=== PATIENT | male | born 1955 | race Asian ===

== ENCOUNTER 2019-04-25 20:18 | Inpatient (IN) | payer MEDICAID ==
[~2019-04-25] VITALS: Ht 182.9 cm; Wt 95.4 kg
--- NOTE | 2019-04-25 20:30 | NUR ---
ED Nurse Note: Pt is A&Ox3, c/o generlized swelling q21mlwv, pt has hx of CHF. BP 194/125.
[2019-04-25] MEDS ORDERED: HYDRALAZINE HC100 MG ORAL (20:36)
[2019-04-25] MEDS ORDERED: FUROSEMIDE40 MG ORAL (20:36)
[2019-04-25] MEDS ORDERED: COREG12.5 MG ORAL (20:36)
[2019-04-25] MEDS ORDERED: CATAPRES0.3 MG ORAL (20:36)
[2019-04-25] MEDS ORDERED: ASPIRIN81 MG ORAL (20:36)
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
[2019-04-25 21:12] LABS: BASOPHILS % (AUTO) 0.5 % (0.0-2.0); EOSINOPHILS % (AUTO) 6.3 % (0.0-3.0); HEMATOCRIT 25.9 % (42.0-52.0); HEMOGLOBIN 8.9 G/DL (14.2-18.0); LYMPHOCYTES % (AUTO) 19.9 % (20.0-45.0); MEAN CORPUSCULAR VOLUME 83 FL (80-99); MONOCYTES % (AUTO) 5.6 % (1.0-10.0); NEUTROPHILS % (AUTO) 67.7 % (45.0-75.0); PLATELET COUNT 386 K/UL (150-450); RED BLOOD COUNT 3.14 M/UL (4.70-6.10); RED CELL DISTRIBUTION WIDTH 13.8 % (11.6-14.8); WHITE BLOOD COUNT 8.3 K/UL (4.8-10.8)
[2019-04-25 21:15] VITALS: BP 204/121
[2019-04-25 21:24] LABS: ANION GAP 11 mmol/L (5-15); BLOOD UREA NITROGEN 40 mg/dL (7-18); CALCIUM 8.1 MG/DL (8.5-10.1); CARBON DIOXIDE 23 MMOL/L (21-32); CHLORIDE 110 MMOL/L (98-107); CREATININE 3.2 MG/DL (0.55-1.30); POTASSIUM 3.7 MMOL/L (3.5-5.1); SODIUM 144 MMOL/L (136-145)
[2019-04-25 21:37] LABS: ALANINE AMINOTRANSFERASE 22 U/L (12-78); ALBUMIN 2.1 G/DL (3.4-5.0); ALBUMIN/GLOBULIN RATIO 0.6 (1.0-2.7); ALKALINE PHOSPHATASE 93 U/L (46-116); ASPARTATE AMINO TRANSFERASE 21 U/L (15-37); BILIRUBIN,TOTAL 0.2 MG/DL (0.2-1.0); CKMB 2.2 NG/ML (0.0-3.6); CREATINE KINASE 166 U/L (26-308)
--- NOTE | 2019-04-25 22:30 | NUR ---
ED Nurse Note: Pt is resting in bed, was given a sandwhich and juice, urinated 300mls of pale yellow urine. No further orders at this time
[2019-04-25] MEDS ORDERED: Albuterol/Ipratropium 3ml neb HHN PRN (23:00)
[2019-04-25] MEDS ORDERED: Miralax 17gm pkt ORAL PRN (23:00)
--- NOTE | 2019-04-25 23:20 | NUR ---
TRANSFER TO FLOOR: Patient transferred to as ordered, per Dr Marquez. Report given to PURA Nassar . Belongings and medications given to . Family and or S/O informed of transfer.
[2019-04-25 23:30] VITALS: BP 136/96
--- NOTE | 2019-04-25 23:30 | NUR ---
NURSE NOTES: Pt report received from [facility]. Pt is alert and oriented times 4 and able to follow simple commands. pt pupils are round and reactive to light and accommodating, bilaterally. Pt is placed in a emt p showing A FIB. Pt is on 2L NC and is saturating at 100%, no signs symptoms of acute cardiac distress noted. Pt has a L AC 20G noted, asymptomatic and able to flush. pt was brought up with all belongings which are at his bed side. all safety precautions are active, bed low and locked, bed armed, call light within easy access to pt, bed rails up times 3.
[2019-04-26] VITALS: BP 140/99
--- NOTE | 2019-04-26 00:07 | NUR ---
NURSE NOTES: Attempted to call MD Boyle to report pt condition. awaiting orders.
--- NOTE | 2019-04-26 00:14 | NUR ---
NURSE NOTES: Messaged MD Boyle in regards to Pts BP and HR as well as condition. awaiting orders.
--- NOTE | 2019-04-26 01:04 | NUR ---
NURSE NOTES: Messaged MD Marquez in regards to pt HR and BP. awaiting orders.
--- NOTE | 2019-04-26 01:16 | NUR ---
NURSE NOTES: Called MD Marquez office, Otto (with messaging services) answered and stated he is going to give message to MD Marquez. awaiting orders.
--- NOTE | 2019-04-26 02:05 | NUR ---
NURSE NOTES: Called MD Marquez office, Otto (with messaging services) answered and stated he is going to give message to MD Marquez. awaiting orders.
--- NOTE | 2019-04-26 03:00 | NUR ---
NURSE NOTES: MD Marquez messaged back and stated messaged MD Donald and MD Boyle. MD Donald has been messaged regarding Pt condition, HR and BP. awaiting orders.
[2019-04-26 04:00] VITALS: BP 155/102
--- NOTE | 2019-04-26 04:00 | NUR ---
NURSE NOTES: Pt refused to give stool sample.
--- NOTE | 2019-04-26 07:30 | NUR ---
HAND-OFF: Report given to Larry NEVESPRINTER ASSISTANT.
[2019-04-26 07:35] LABS: BASOPHILS % (AUTO) 1.2 % (0.0-2.0); HEMATOCRIT 26.4 % (42.0-52.0); HEMOGLOBIN 8.7 G/DL (14.2-18.0); LYMPHOCYTES % (AUTO) 20.8 % (20.0-45.0); MEAN CORPUSCULAR VOLUME 85 FL (80-99); MONOCYTES % (AUTO) 8.4 % (1.0-10.0); NEUTROPHILS % (AUTO) 62.7 % (45.0-75.0); PLATELET COUNT 380 K/UL (150-450); RED CELL DISTRIBUTION WIDTH 14.1 % (11.6-14.8); WHITE BLOOD COUNT 7.5 K/UL (4.8-10.8)
[2019-04-26 07:45] LABS: % IRON SATURATION 14 % (15-50); IRON 24 ug/dL (50-175); TOTAL IRON BINDING CAPACITY 176 ug/dL (250-450)
[2019-04-26] MEDS ORDERED: dilTIAZem HCl 25mg/5ml Inj IV PRN (07:45)
[2019-04-26 07:51] LABS: ALBUMIN 1.8 G/DL (3.4-5.0); ANION GAP 11 mmol/L (5-15); BLOOD UREA NITROGEN 44 mg/dL (7-18); CALCIUM 7.9 MG/DL (8.5-10.1); CARBON DIOXIDE 21 MMOL/L (21-32); CHLORIDE 112 MMOL/L (98-107); CREATININE 3.2 MG/DL (0.55-1.30); PHOSPHORUS 4.5 MG/DL (2.5-4.9); POTASSIUM 3.6 MMOL/L (3.5-5.1); SODIUM 144 MMOL/L (136-145)
--- NOTE | 2019-04-26 07:56 | NUR ---
NURSE NOTES: Received report from PURA Zimmerman. Patient in bed resting, no active s/s cardiac, respiratory distress noticed at this time, patient on 2L oxygen via NC, AOx4 , denies pain at this time. STAT EKG ordered for A. fib at night, EKG done, SR with 1st AVB, IV on left AC 20G, asymptomatic, patent, intact. Bed in lowest position, side rails upx2, call light within reach. Will continue to monitor.
[2019-04-26 08:00] VITALS: BP 165/97
[2019-04-26 08:05] LABS: LACTATE DEHYDROGENASE 235 U/L (81-234)
--- NOTE | 2019-04-26 08:14 | NUR ---
RADIOLOGY DEPT.,CHEST X-RAY DONE.-P.DYE
[2019-04-26 08:17] LABS: CREATINE KINASE 140 U/L (26-140)
[2019-04-26] MEDS ORDERED: Heparin 5000 units/ml inj SUBQ SCH (09:00)
--- NOTE | 2019-04-26 09:00 | NUR ---
NURSE NOTES: Dr. Huitron made aware patient troponin level elevated from 0.039 yesterday to 0.064 today, BUN 44, creatinine 3.2, SR with HR 86. No order given at this time.
--- NOTE | 2019-04-26 10:25 | Cardiac Electrophysiology PN ---
Subjective Subjective [id number] Objective Last 24 Hour Vital Signs Date Time Temp Pulse Resp B/P (MAP) Pulse Ox O2 Delivery O2 Flow Rate FiO2 04/26/19 09:00 Nasal Cannula 2.0 04/26/19 08:00 97.9 90 20 165/97 (119) 98 04/26/19 08:00 2.0 04/26/19 04:00 98.2 111 20 155/102 (119) 98 04/26/19 04:00 2.0 04/26/19 04:00 95 04/26/19 00:39 Nasal Cannula 2.0 04/26/19 00:00 103 04/26/19 00:00 98.0 125 20 140/99 (113) 97 04/25/19 23:30 97.9 129 20 136/96 (109) 97 04/25/19 23:30 Nasal Cannula 2.0 04/25/19 23:30 138 04/25/19 23:18 98.2 82 18 165/90 100 Room Air 04/25/19 22:55 174/110 04/25/19 21:17 204/121 04/25/19 21:15 98.2 98 16 204/121 98 Room Air 04/25/19 21:15 98 16 Room Air 04/25/19 20:24 98.2 98 16 204/121 (148) 98 Room Air Intake and Output 04/25/19 04/26/19 19:00 07:00 Output Total 300 ml Balance -300 ml Output Urine Total 300 ml Laboratory Tests Test 04/25/19 20:41 04/25/19 20:50 04/26/19 05:34 White Blood Count 8.3 K/UL (4.8-10.8) 7.5 K/UL (4.8-10.8) Red Blood Count 3.14 M/UL (4.70-6.10) L 3.10 M/UL (4.70-6.10) L Hemoglobin 8.9 G/DL (14.2-18.0) L 8.7 G/DL (14.2-18.0) L Hematocrit 25.9 % (42.0-52.0) L 26.4 % (42.0-52.0) L Mean Corpuscular Volume 83 FL (80-99) 85 FL (80-99) Mean Corpuscular Hemoglobin 28.3 PG (27.0-31.0) 28.0 PG (27.0-31.0) Mean Corpuscular Hemoglobin Concent 34.2 G/DL (32.0-36.0) 32.9 G/DL (32.0-36.0) Red Cell Distribution Width 13.8 % (11.6-14.8) 14.1 % (11.6-14.8) Platelet Count 386 K/UL (150-450) 380 K/UL (150-450) Mean Platelet Volume 3.9 FL (6.5-10.1) L 4.6 FL (6.5-10.1) L Neutrophils (%) (Auto) 67.7 % (45.0-75.0) 62.7 % (45.0-75.0) Lymphocytes (%) (Auto) 19.9 % (20.0-45.0) L 20.8 % (20.0-45.0) Monocytes (%) (Auto) 5.6 % (1.0-10.0) 8.4 % (1.0-10.0) Eosinophils (%) (Auto) 6.3 % (0.0-3.0) H 7.0 % (0.0-3.0) H Basophils (%) (Auto) 0.5 % (0.0-2.0) 1.2 % (0.0-2.0) Sodium Level 144 MMOL/L (136-145) 144 MMOL/L (136-145) Potassium Level 3.7 MMOL/L (3.5-5.1) 3.6 MMOL/L (3.5-5.1) Chloride Level 110 MMOL/L (98-107) H 112 MMOL/L (98-107) H Carbon Dioxide Level 23 MMOL/L (21-32) 21 MMOL/L (21-32) Anion Gap 11 mmol/L (5-15) 11 mmol/L (5-15) Blood Urea Nitrogen 40 mg/dL (7-18) H 44 mg/dL (7-18) H Creatinine 3.2 MG/DL (0.55-1.30) H 3.2 MG/DL (0.55-1.30) H Estimat Glomerular Filtration Rate 19.7 mL/min (>60) 19.7 mL/min (>60) Glucose Level 138 MG/DL (74-106) H 103 MG/DL (74-106) Calcium Level 8.1 MG/DL (8.5-10.1) L 7.9 MG/DL (8.5-10.1) L Total Bilirubin 0.2 MG/DL (0.2-1.0) Aspartate Amino Transf (AST/SGOT) 21 U/L (15-37) Alanine Aminotransferase (ALT/SGPT) 22 U/L (12-78) Alkaline Phosphatase 93 U/L (46-116) Total Creatine Kinase 166 U/L (26-308) 140 U/L (26-140) Creatine Kinase MB 2.2 NG/ML (0.0-3.6) Creatine Kinase MB Relative Index 1.3 Troponin I 0.039 ng/mL (0.000-0.056) 0.064 ng/mL (0.000-0.056) Pro-B-Type Natriuretic Peptide > 01520 pg/mL (0-125) H Total Protein 5.8 G/DL (6.4-8.2) L Albumin 2.1 G/DL (3.4-5.0) L 1.8 G/DL (3.4-5.0) L Globulin 3.7 g/dL Albumin/Globulin Ratio 0.6 (1.0-2.7) L Differential Total Cells Counted 100 Neutrophils % (Manual) 69 % (45-75) Lymphocytes % (Manual) 20 % (20-45) Monocytes % (Manual) 5 % (1-10) Eosinophils % (Manual) 5 % (0-3) H Basophils % (Manual) 1 % (0-2) Band Neutrophils 0 % (0-8) Platelet Estimate Adequate Platelet Morphology Normal Erythrocyte Sedimentation Rate 111 MM/HR (0-20) H Reticulocyte Count 1.6 % (0.5-2.0) Prothrombin Time 10.3 SEC (9.30-11.50) Prothromb Time International Ratio 1.0 (0.9-1.1) Activated Partial Thromboplast Time 31 SEC (23-33) Uric Acid 7.1 MG/DL (2.6-7.2) Phosphorus Level 4.5 MG/DL (2.5-4.9) Magnesium Level 2.3 MG/DL (1.8-2.4) Iron Level 24 ug/dL (50-175) L Total Iron Binding Capacity 176 ug/dL (250-450) L Percent Iron Saturation 14 % (15-50) L Unsaturated Iron Binding 152 ug/dL (112-346) Lactate Dehydrogenase 235 U/L (81-234) H C-Reactive Protein, Quantitative < 0.4 mg/dL (0.00-0.90) Carcinoembryonic Antigen Pending Vitamin B12 Level 327 PG/ML (193-986) Folate 15.0 NG/ML (8.6-58.9) Davy Huitron MD Apr 26, 2019 10:25
--- NOTE | 2019-04-26 10:35 | NUR ---
NURSE NOTES: Dr. Huitron at the nursing station, made aware of high blood pressure, per Dr. Huitron, will take care, no order given at this time. Will continue to monitor.
--- NOTE | 2019-04-26 11:11 | NUR ---
CASE MANAGEMENT:REVIEW 63 YR OLD MALE FROM HOME(TRANSITIONAL CORRECTION) TO ER PMH: DISCHARGED FROM [facility] FOR CHF ON THURSDAY AND DID NOT FILL PRESCRIPTION CC: SOB. GENERALIZED SWELLING X30 DAYS SI: CHF. HTN 98.2 98 16 204/121 98% ON RA H/H-8.9/25.9 BUN+40 CR+3.2 BNP>[id number] IS: IV LASIX IV HYDRALAZINE X2 ASA PO CHEST XRAY : TO TELEMETRY
[2019-04-26 12:00] VITALS: BP 172/105
--- NOTE | 2019-04-26 12:45 | Diagnostic Imaging Report ---
Indication: Dyspnea Comparison: None A single view chest radiograph was obtained. Findings: Vascular prominence and interstitial edema suspected with evidence of a left pleural effusion. Heart size is borderline enlarged. IMPRESSION: Suspected CHF and a left pleural effusion
[2019-04-26] MEDS: dilTIAZem HCl 60mg tab ORAL SCH ×2 (12:51→17:44)
--- NOTE | 2019-04-26 13:00 | NUR ---
NURSE NOTES: Dr. Boudreaux at the nursing station made aware patient has high blood pressure 170s, per Dr. Boudreaux, will review chart and will order something. No order given at this time. Will continue to monitor.
--- NOTE | 2019-04-26 13:02 | Diagnostic Imaging Report ---
Indication: Dyspnea Comparison: 04/25/2019 A single view chest radiograph was obtained. Findings: There is evidence of a left pleural effusion. Mild pulmonary vascular congestion may be present. Correlate clinically. Heart is enlarged. IMPRESSION: No significant change compared to the previous day
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
[2019-04-26] MEDS ORDERED: Iron Sucrose 200 MG in NS 110 ML IV ONE (13:30)
--- NOTE | 2019-04-26 14:16 | Diagnostic Imaging Report ---
Indication:Elevated Bun and Creatinine. Technique: Grayscale and duplex Doppler imaging of the kidneys performed. Comparison: None Findings: The kidneys appear echogenic. The right kidney length is 10.3 cm. The left kidney length is 11.3 cm. There is no hydronephrosis. There is trace ascites and perinephric fluid. Moderate bilateral pleural effusions noted. IVC and bladder are unremarkable. IMPRESSION: Medical renal disease Bilateral pleural effusions
--- NOTE | 2019-04-26 15:33 | NUR ---
NURSE NOTES: Dr. Huitron made aware patient still has high blood pressure 170s, we have order for Cardizem, amiodarone, Lasix, but patient not urinating. No order given at this time, will continue to monitor.
[2019-04-26 16:00] VITALS: BP 183/123
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
--- NOTE | 2019-04-26 16:00 | NUR ---
NURSE NOTES: Patient void, 24h urine collection begin
--- NOTE | 2019-04-26 17:04 | NUR ---
NURSE NOTES: Per Dr. Huitron, hydralazine 10mg IV Q 2h prn for SBP >170, order noted, entered, carried out.
[2019-04-26 17:15] LABS: APPEARANCE,URINE SLIGHTLY CLOUDY; BILIRUBIN, URINE NEGATIVE (NEGATIVE); COLOR,URINE PALE YELLOW; GLUCOSE, URINE (UA) NEGATIVE (NEGATIVE); KETONES,URINE NEGATIVE (NEGATIVE); LEUKOCYTE ESTERASE ,URINE NEGATIVE (NEGATIVE); NITRITE,URINE NEGATIVE (NEGATIVE); PH,URINE 5 (4.5-8.0); PROTEIN,URINE 4+ (NEGATIVE); UROBILINOGEN,URINE NORMAL MG/DL (0.0-1.0)
[2019-04-26] MEDS: Eliquis 2.5mg tablet ORAL SCH (17:45)
[2019-04-26] MEDS: Docusate 100mg cap ORAL SCH (17:45)
[2019-04-26] MEDS ORDERED: Eliquis 5mg tablet ORAL SCH (18:00)
--- NOTE | 2019-04-26 19:27 | NUR ---
NURSE NOTES: Received bedside report from PURA Juarez.Patient stable,A&O x4,SR on staffing specialist,2L/min N/C,no SOB,no respiratory distress noted,no c/o pain at this moment,BS active in all quadrants,IV asymptomatic,intact on L AC 20G TKO,bed secured in a low safety position,call light within a reach,will continue to monitor and continue to 24 hours urine collection that has been started @ 1600 04/26/19.
[2019-04-26 20:00] VITALS: BP 147/93
--- NOTE | 2019-04-26 20:07 | NUR ---
HAND-OFF: Report given to PURA Roy.
--- NOTE | 2019-04-26 20:35 | NUR ---
NURSE NOTES: Received a lab result from Maetroponin 0.069.Charge nurse aware,day shift will endorse
--- NOTE | 2019-04-26 20:36 | NUR ---
NURSE NOTES: MD will notify in a morning regarding patient's lab result
[2019-04-26] MEDS: Amiodarone 200mg tab ORAL SCH (20:42)
[2019-04-27] VITALS: BP 144/89
[2019-04-27] MEDS: dilTIAZem HCl 60mg tab ORAL SCH ×4 (00:13→17:19)
--- NOTE | 2019-04-27 03:15 | Consultation ---
DATE OF CONSULTATION: 04/26/2019 CARDIOLOGY CONSULTATION CONSULTING PHYSICIAN: Davy Huitron M.D. REASON FOR CONSULTATION: Atrial fibrillation with rapid ventricular response. HISTORY OF PRESENT ILLNESS: The patient is a 63-year-old gentleman with history of hypertension, diabetes, and congestive heart failure, presented to the emergency room for increasing shortness of breath. The patient was just discharged from the [facility] about two weeks ago and states that his has been swollen since then . The patient also noted increased scrotal swelling. The patient's blood pressure in the ER was 204/121 and subsequently had developed atrial fibrillation with rapid ventricular response and the EKG showing a heart rate of 160 beats per minute. REVIEW OF SYSTEMS: Review of systems was negative other than what was mentioned in the history of present illness. PAST MEDICAL HISTORY: 1. Hypertension. 2. Congestive heart failure. 3. History of chronic kidney disease. 4. Psychiatric history of schizophrenia. FAMILY HISTORY: Noncontributory. PHYSICAL EXAMINATION: VITAL SIGNS: Show blood pressure of 165/97, pulse is 90, respirations 18, and temperature 97.7. HEAD AND NECK: Shows no JVD or carotid bruit. LUNGS: Have decreased breath sounds. CARDIOVASCULAR: Regular S1 and S2 with no gallop or murmur. ABDOMEN: Soft. EXTREMITIES: A 1+ pitting edema. LABORATORY AND DIAGNOSTIC DATA: His labs show white count , hemoglobin 8.7, hematocrit 26.4, and platelet count of 380. Sodium 144, potassium 3.6, BUN of 44, creatinine 3.2, glucose of 103. Troponin was 0.039 and subsequent one was 0.064. His BNP is more than 35,000. ASSESSMENT AND PLAN: 1. Atrial fibrillation with rapid ventricular response. The EKG on showed atrial fibrillation, heart rate 150 beats per minute. A 12-lead EKG from today at 7:11 a.m. shows sinus rhythm with first-degree AV block with left posterior fascicular block as well as inferolateral ischemia on the EKG. I will start the patient on Cardizem 60 mg every 6 hours for blood pressure control and also to control the rate during atrial fibrillation. We may need to start him on amiodarone since he goes so much in and out of atrial fibrillation and arrhythmia. 2. Congestive heart failure. Echocardiogram showed EF of 55% with diastolic dysfunction. Continue Lasix 40 mg IV every 8 hours as well as Cardizem. 3. History of hypertension. Blood pressure was in 200. Continue Lasix and Cardizem. May need to increase dose of Cardizem. 4. History of schizophrenia. Further evaluation by Psychiatry. 5. Anticoagulation, the patient is on heparin 5000 subcutaneous b.i.d. 6. I will likely switch him to Eliquis 5 mg b.i.d. for thromboembolic prophylaxis. Thank you very much for allowing me to participate in the care of this patient. Please do not hesitate to contact me for any questions regarding my evaluation. Davy Huitron M.D. DR: ANANDA JOB#: [id number] CC:
[2019-04-27 04:00] VITALS: BP 149/95
--- NOTE | 2019-04-27 07:06 | NUR ---
HAND-OFF: Report given to PURA Ames.Patient stable..
--- NOTE | 2019-04-27 07:20 | NUR ---
NURSE NOTES: I received the patient awake and resting in bed. Patient alert and oriented x4. Laboratory at the bedside drawing blood. Patient does not display any signs of distress or SOB. Bed in the lowest position and call light within reach. I will continue to monitor the patient and implement care.
[2019-04-27 08:00] VITALS: BP 153/89
--- NOTE | 2019-04-27 08:16 | NUR ---
NURSE NOTES: Dr. Huitron made aware that the patient's troponin trended up to 0.069.
[2019-04-27] MEDS: Eliquis 2.5mg tablet ORAL SCH ×2 (08:30→17:19)
[2019-04-27] MEDS: Amiodarone 200mg tab ORAL SCH ×2 (08:30→20:39)
[2019-04-27] MEDS: Docusate 100mg cap ORAL SCH ×2 (08:30→17:19)
[2019-04-27 08:50] LABS: BASOPHILS % (AUTO) 0.5 % (0.0-2.0); EOSINOPHILS % (AUTO) 1.7 % (0.0-3.0); HEMATOCRIT 25.1 % (42.0-52.0); HEMOGLOBIN 8.3 G/DL (14.2-18.0); LYMPHOCYTES % (AUTO) 15.7 % (20.0-45.0); MEAN CORPUSCULAR VOLUME 86 FL (80-99); MONOCYTES % (AUTO) 5.7 % (1.0-10.0); NEUTROPHILS % (AUTO) 76.4 % (45.0-75.0); PLATELET COUNT 351 K/UL (150-450); RED BLOOD COUNT 2.92 M/UL (4.70-6.10); RED CELL DISTRIBUTION WIDTH 14.5 % (11.6-14.8); WHITE BLOOD COUNT 11.5 K/UL (4.8-10.8)
[2019-04-27 09:10] LABS: PHOSPHORUS 4.5 MG/DL (2.5-4.9)
[2019-04-27 09:30] LABS: ALANINE AMINOTRANSFERASE 18 U/L (12-78); ALBUMIN 2.1 G/DL (3.4-5.0); ALBUMIN/GLOBULIN RATIO 0.7 (1.0-2.7); ALKALINE PHOSPHATASE 88 U/L (46-116); ANION GAP 11 mmol/L (5-15); ASPARTATE AMINO TRANSFERASE 20 U/L (15-37); BILIRUBIN,TOTAL 0.3 MG/DL (0.2-1.0); BLOOD UREA NITROGEN 45 mg/dL (7-18); CALCIUM 7.7 MG/DL (8.5-10.1); CARBON DIOXIDE 22 MMOL/L (21-32); CHLORIDE 107 MMOL/L (98-107); CHOLESTEROL 390 MG/DL (< 200); CREATININE 3.4 MG/DL (0.55-1.30); HDL CHOLESTEROL 34 MG/DL (40-60); POTASSIUM 3.7 MMOL/L (3.5-5.1); SODIUM 139 MMOL/L (136-145); TRIGLYCERIDES 224 MG/DL (30-150)
--- NOTE | 2019-04-27 09:39 | Pulmonology Progress Note ---
Assessment/Plan Problems: (1) Nephrotic syndrome (2) Renal anasarca (3) Hypertension (4) CRF (chronic renal failure) (5) Anemia, unspecified Assessment/Plan 24 hour urine protein and creatinine clearance pending on Lasix., watch bun/creatinine monitor BP Renal US noted, chronic renal disease dvt prophylaxis. Subjective ROS Limited/Unobtainable: No Constitutional: Reports: no symptoms HEENT: Repors: no symptoms Respiratory: Reports: no symptoms Allergies: Coded Allergies: Dairy (Verified Allergy, Unknown, 04/25/19) PENICILLINS (Verified Allergy, Unknown, 04/25/19) Objective Last 24 Hour Vital Signs Date Time Temp Pulse Resp B/P (MAP) Pulse Ox O2 Delivery O2 Flow Rate FiO2 04/27/19 08:00 98.3 69 20 153/89 (110) 96 04/27/19 05:06 78 149/95 04/27/19 04:00 96.8 78 19 149/95 (113) 98 04/27/19 04:00 2.0 04/27/19 03:27 76 04/27/19 00:13 83 144/89 04/27/19 00:00 2.0 04/27/19 00:00 98.9 83 19 144/89 (107) 98 04/26/19 23:40 85 04/26/19 21:00 Nasal Cannula 2.0 04/26/19 20:00 97.3 87 18 147/93 (111) 98 04/26/19 20:00 2.0 04/26/19 19:48 83 20 98 Nasal Cannula 2.0 28 04/26/19 19:44 90 24 94 Nasal Cannula 2.0 28 04/26/19 19:43 90 24 94 Nasal Cannula 2.0 28 04/26/19 19:42 94 Nasal Cannula 2.0 28 04/26/19 19:03 87 04/26/19 17:44 183/123 04/26/19 17:44 92 183/123 04/26/19 16:00 90 04/26/19 16:00 97.3 92 18 183/123 (143) 95 04/26/19 16:00 2.0 04/26/19 12:51 80 172/105 04/26/19 12:00 83 04/26/19 12:00 97.8 80 18 172/105 (127) 95 04/26/19 12:00 2.0 Intake and Output 04/26/19 04/27/19 18:59 06:59 Intake Total 360 ml 950 ml Output Total 300 ml Balance 60 ml 950 ml Intake Oral 360 ml 950 ml Output Urine Total 300 ml # Voids 6 General Appearance: WD/WN HEENT: normocephalic, atraumatic Respiratory/Chest: chest wall non-tender, lungs clear Cardiovascular: normal peripheral pulses, normal rate Abdomen: normal bowel sounds Genitourinary: normal external genitalia Neurologic/Psychiatric: poke in II-XII grossly normal Lymphatic: no neck adenopathy Laboratory Tests 04/26/19 16:00: Urine Color Pale yellow, Urine Appearance Slightly cloudy, Urine pH 5, Urine Specific [place] 1.020, Urine Protein 4+H, Urine Glucose (UA) Negative, Urine Ketones Negative, Urine Blood 2+H, Urine Nitrite Negative, Urine Bilirubin Negative, Urine Urobilinogen Normal, Urine Leukocyte Esterase Negative, Urine RBC 10-15H, Urine WBC 0-2, Urine Squamous Epithelial Cells Occasional, Urine Bacteria Few, Urine Hyaline Casts 10-15H, Urine Fine Granular Casts 2-4H, Urine Eosinophils None seen, Urine Osmolality 365L, Urine Random Creatinine [Pending] , Urine Random Microalbumin [Pending], Urine Random Sodium 61, Urine Microalbumin/Creatinine Ratio [Pending], Urine Potassium Timed 43 04/26/19 20:00: Troponin I 0.069H 04/27/19 04:00: White Blood Count 11.5#H, Red Blood Count 2.92L, Hemoglobin 8.3L, Hematocrit 25.1L, Mean Corpuscular Volume 86, Mean Corpuscular Hemoglobin 28.6, Mean Corpuscular Hemoglobin Concent 33.3, Red Cell Distribution Width 14.5, Platelet Count 351, Mean Platelet Volume 4.4L, Neutrophils (%) (Auto) 76.4H, Lymphocytes (%) (Auto) 15.7L, Monocytes (%) (Auto) 5.7, Eosinophils (%) (Auto) 1.7, Basophils (%) (Auto) 0.5 04/27/19 07:02: Troponin I 0.049, Sodium Level 139, Potassium Level 3.7, Chloride Level 107, Carbon Dioxide Level 22, Anion Gap 11, Blood Urea Nitrogen 45H, Creatinine 3.4H , Estimat Glomerular Filtration Rate 18.3, Glucose Level 110H, Calcium Level 7.7L, Phosphorus Level 4.5, Magnesium Level 2.1, Total Bilirubin 0.3, Aspartate Amino Transf (AST/SGOT) 20, Alanine Aminotransferase (ALT/SGPT) 18, Alkaline Phosphatase 88, Pro-B-Type Natriuretic Peptide 19996Z, Total Protein 4.9L, Albumin 2.1L, Globulin 2.8, Albumin/Globulin Ratio 0.7L, Triglycerides Level 224H, Cholesterol Level 390H, LDL Cholesterol 272H, HDL Cholesterol 34L, Cholesterol/HDL Ratio 11.5H, Thyroid Stimulating Hormone (TSH) 3.402, Free Thyroxine 1.30 Current Medications Medications (Trade) Dose Ordered Sig/Hans Route PRN Reason Start Time Stop Time Status Last Admin Dose Admin Acetaminophen (Tylenol) 650 mg Q4H PRN ORAL Fever 04/25/19 23:00 05/25/19 22:59 04/26/19 20:02 Albuterol/ Ipratropium (Albuterol/ Ipratropium) 3 ml EVERY 4 HOURS PRN HHN Shortness of Breath 04/25/19 23:00 04/30/19 22:59 04/26/19 19:46 Amiodarone HCl (Cordarone) 400 mg EVERY 12 HOURS ORAL 04/26/19 21:00 05/26/19 20:59 04/27/19 08:30 Apixaban (Eliquis) 2.5 mg BID ORAL 04/26/19 18:00 05/26/19 17:59 04/27/19 08:30 Dextrose (Dextrose 50%) 25 ml Q30M PRN IV Hypoglycemia 04/25/19 23:00 05/25/19 22:59 Dextrose (Dextrose 50%) 50 ml Q30MIN PRN IV Hypoglycemia 04/25/19 23:00 05/25/19 22:59 Diltiazem HCl (Cardizem) 10 mg Q1H PRN IV heart rate more than 120, 04/26/19 07:45 05/26/19 07:44 Diltiazem HCl (Cardizem) 60 mg EVERY 6 HOURS ORAL 04/26/19 12:00 05/26/19 11:59 04/27/19 05:06 Docusate Sodium (Colace) 100 mg TWICE A DAY ORAL 04/26/19 18:00 05/26/19 17:59 04/27/19 08:30 Epoetin [place] (Epoetin [place]-EPBX(NON ESRD)) 10,000 unit THU- SUBQ 04/27/19 21:00 05/27/19 20:59 Furosemide (Lasix) 40 mg EVERY 8 HOURS IV 04/26/19 06:00 05/26/19 05:59 04/27/19 05:05 Hydralazine HCl (Apresoline) 10 mg Q2H PRN IV SBP > 170mmHg 04/26/19 17:15 05/26/19 17:14 04/26/19 17:44 Ondansetron HCl (Zofran) 4 mg Q6H PRN IVP Nausea & Vomiting 04/25/19 23:00 05/25/19 22:59 Pantoprazole (Protonix) 40 mg Q12HR ORAL 04/26/19 21:00 05/26/19 20:59 04/27/19 08:30 Polyethylene Glycol (Miralax) 17 gm DAILYPRN PRN ORAL Constipation 04/25/19 23:00 05/25/19 22:59 Temazepam (Restoril) 15 mg HSPRN PRN ORAL Insomnia 04/25/19 23:00 05/02/19 22:59 04/26/19 20:02 Lorenza Boyle MD Apr 27, 2019 09:39
--- NOTE | 2019-04-27 10:54 | Cardiac Electrophysiology PN ---
Assessment/Plan Assessment/Plan 1. Atrial fibrillation with rapid ventricular response. The EKG on 10/25/19 showed atrial fibrillation, heart rate 150 beats per minute. A 12-lead EKG from 10/26/19 at 7:11 a.m. shows sinus rhythm with first-degree AV block with left posterior fascicular block as well as inferolateral ischemia on the EKG. On Cardizem 60 mg every 6 hours and amiodarone 400 bid and Eliquis 2.5 bid 2. Congestive heart failure with BNP > 43259. Echocardiogram showed EF of 55% with diastolic dysfunction. Continue Lasix 40 mg IV every 8 hours as well as Cardizem.Likely due to volume overload due to renal failure. 3. Hypertension. Blood pressure was in 200. Continue Lasix and Cardizem. 4. Acute renal failure. BUN/CR 45/3.4 ? Nephrotic syndrome. FU Dr Boudreaux. May need HD 4. History of schizophrenia. Further evaluation by Psychiatry. Subjective Subjective Alert in NAD. Is having 24 hour urine collection. On Iv Lasix 40 tid. Objective Last 24 Hour Vital Signs Date Time Temp Pulse Resp B/P (MAP) Pulse Ox O2 Delivery O2 Flow Rate FiO2 04/27/19 09:00 Nasal Cannula 2.0 04/27/19 08:00 98.3 69 20 153/89 (110) 96 04/27/19 08:00 2.0 28 04/27/19 08:00 73 04/27/19 07:41 95 Nasal Cannula 2.0 28 04/27/19 05:06 78 149/95 04/27/19 04:00 96.8 78 19 149/95 (113) 98 04/27/19 04:00 2.0 04/27/19 03:27 76 04/27/19 00:13 83 144/89 04/27/19 00:00 2.0 04/27/19 00:00 98.9 83 19 144/89 (107) 98 04/26/19 23:40 85 04/26/19 21:00 Nasal Cannula 2.0 04/26/19 20:00 97.3 87 18 147/93 (111) 98 04/26/19 20:00 2.0 04/26/19 19:48 83 20 98 Nasal Cannula 2.0 28 04/26/19 19:44 90 24 94 Nasal Cannula 2.0 28 04/26/19 19:43 90 24 94 Nasal Cannula 2.0 28 04/26/19 19:42 94 Nasal Cannula 2.0 28 04/26/19 19:03 87 04/26/19 17:44 183/123 04/26/19 17:44 92 183/123 04/26/19 16:00 90 04/26/19 16:00 97.3 92 18 183/123 (143) 95 04/26/19 16:00 2.0 04/26/19 12:51 80 172/105 04/26/19 12:00 83 04/26/19 12:00 97.8 80 18 172/105 (127) 95 04/26/19 12:00 2.0 Intake and Output 04/26/19 04/27/19 18:59 06:59 Intake Total 360 ml 950 ml Output Total 300 ml Balance 60 ml 950 ml Intake Oral 360 ml 950 ml Output Urine Total 300 ml # Voids 6 Laboratory Tests Test 04/26/19 16:00 04/26/19 20:00 04/27/19 04:00 04/27/19 07:02 Urine Color Pale yellow Urine Appearance Slightly cloudy Urine pH 5 (4.5-8.0) Urine Specific [place] 1.020 (1.005-1.035) Urine Protein 4+ (NEGATIVE) H Urine Glucose (UA) Negative (NEGATIVE) Urine Ketones Negative (NEGATIVE) Urine Blood 2+ (NEGATIVE) H Urine Nitrite Negative (NEGATIVE) Urine Bilirubin Negative (NEGATIVE) Urine Urobilinogen Normal MG/DL (0.0-1.0) Urine Leukocyte Esterase Negative (NEGATIVE) Urine RBC 10-15 /HPF (0 - 0) H Urine WBC 0-2 /HPF (0 - 0) Urine Squamous Epithelial Cells Occasional /LPF Urine Bacteria Few /HPF (NONE) Urine Hyaline Casts 10-15 /LPF (NONE) H Urine Fine Granular Casts 2-4 /LPF (NONE) H Urine Eosinophils None seen (NONE SEEN) Urine Osmolality 365 mOsm/kg (429-449) L Urine Random Creatinine Pending Urine Random Microalbumin Pending Urine Random Sodium 61 mmol/L (20-110) Urine Microalbumin/Creatinine Ratio Pending Urine Potassium Timed 43 mmol/L (12-62) Troponin I 0.069 ng/mL (0.000-0.056) 0.049 ng/mL (0.000-0.056) White Blood Count 11.5 K/UL (4.8-10.8) #H Red Blood Count 2.92 M/UL (4.70-6.10) L Hemoglobin 8.3 G/DL (14.2-18.0) L Hematocrit 25.1 % (42.0-52.0) L Mean Corpuscular Volume 86 FL (80-99) Mean Corpuscular Hemoglobin 28.6 PG (27.0-31.0) Mean Corpuscular Hemoglobin Concent 33.3 G/DL (32.0-36.0) Red Cell Distribution Width 14.5 % (11.6-14.8) Platelet Count 351 K/UL (150-450) Mean Platelet Volume 4.4 FL (6.5-10.1) L Neutrophils (%) (Auto) 76.4 % (45.0-75.0) H Lymphocytes (%) (Auto) 15.7 % (20.0-45.0) L Monocytes (%) (Auto) 5.7 % (1.0-10.0) Eosinophils (%) (Auto) 1.7 % (0.0-3.0) Basophils (%) (Auto) 0.5 % (0.0-2.0) Sodium Level 139 MMOL/L (136-145) Potassium Level 3.7 MMOL/L (3.5-5.1) Chloride Level 107 MMOL/L (98-107) Carbon Dioxide Level 22 MMOL/L (21-32) Anion Gap 11 mmol/L (5-15) Blood Urea Nitrogen 45 mg/dL (7-18) H Creatinine 3.4 MG/DL (0.55-1.30) H Estimat Glomerular Filtration Rate 18.3 mL/min (>60) Glucose Level 110 MG/DL (74-106) H Calcium Level 7.7 MG/DL (8.5-10.1) L Phosphorus Level 4.5 MG/DL (2.5-4.9) Magnesium Level 2.1 MG/DL (1.8-2.4) Total Bilirubin 0.3 MG/DL (0.2-1.0) Aspartate Amino Transf (AST/SGOT) 20 U/L (15-37) Alanine Aminotransferase (ALT/SGPT) 18 U/L (12-78) Alkaline Phosphatase 88 U/L (46-116) Pro-B-Type Natriuretic Peptide 82356 pg/mL (0-125) H Total Protein 4.9 G/DL (6.4-8.2) L Albumin 2.1 G/DL (3.4-5.0) L Globulin 2.8 g/dL Albumin/Globulin Ratio 0.7 (1.0-2.7) L Triglycerides Level 224 MG/DL (30-150) H Cholesterol Level 390 MG/DL (< 200) H LDL Cholesterol 272 mg/dL (<100) H HDL Cholesterol 34 MG/DL (40-60) L Cholesterol/HDL Ratio 11.5 (3.3-4.4) H Thyroid Stimulating Hormone (TSH) 3.402 uiU/mL (0.358-3.740) Free Thyroxine 1.30 NG/DL (0.76-1.46) Objective HEAD AND NECK: No JVD or carotid bruit. LUNGS: Have decreased breath sounds. CARDIOVASCULAR: Regular S1 and S2 with no gallop or murmur. ABDOMEN: Soft. EXTREMITIES: 2+ pitting edema and scrotal edema. Davy Huitron MD Apr 27, 2019 10:54
--- NOTE | 2019-04-27 11:40 | NUR ---
CASE MANAGEMENT:REVIEW 04/27/19 SI: NEPHROTIC SYNDROME RENAL ANASARCA. CHRONIC RENAL FAILURE 98.3 69 20 153/89 95% ON 2L/NC WBC+11.5 H/H-8.3/25.1 BUN+45 CR+3.4 IS: EPOETIN SQ MWF AMIODARONE PO Q12 PROTONIX PO Q12 ELIQUIS PO BID CARDIZEM PO Q6HRS IV LASIX Q8HRS : TELEMETRY STATUS DCP: FROM TRANSITIONAL HOUSING PLAN: MONITOR BUN AND CR
[2019-04-27 11:49] VITALS: BP 175/94
--- NOTE | 2019-04-27 14:36 | General Progress Note ---
Assessment/Plan Problem List: (1) Acute exacerbation of CHF (congestive heart failure) ICD Codes: I50.9 - Heart failure, unspecified SNOMED: 553877538, 76759639288862 Qualifiers: Qualified Codes: I50.9 - Heart failure, unspecified (2) Hypertension ICD Codes: I10 - Essential (primary) hypertension SNOMED: 74192623, [id number] Qualifiers: Qualified Codes: I10 - Essential (primary) hypertension (3) Anemia, unspecified ICD Codes: D64.9 - Anemia, unspecified SNOMED: 527651051 Qualifiers: Qualified Codes: D64.9 - Anemia, unspecified (4) Renal anasarca ICD Codes: N04.9 - Nephrotic syndrome with unspecified morphologic changes SNOMED: 81765238344890 Status: unchanged Assessment/Plan: o2 pulm tx cardio f/u pt diet cbc bmp am dc plan snf Subjective Constitutional: Reports: weakness Allergies: Coded Allergies: Dairy (Verified Allergy, Unknown, 04/25/19) PENICILLINS (Verified Allergy, Unknown, 04/25/19) All Systems: reviewed and negative except above Subjective calm in bed Objective Last 24 Hour Vital Signs Date Time Temp Pulse Resp B/P (MAP) Pulse Ox O2 Delivery O2 Flow Rate FiO2 04/27/19 12:31 97.8 04/27/19 12:00 2.0 04/27/19 12:00 75 175/94 04/27/19 12:00 75 04/27/19 11:49 97.8 75 18 175/94 (121) 96 04/27/19 09:00 Nasal Cannula 2.0 04/27/19 08:00 98.3 69 20 153/89 (110) 96 04/27/19 08:00 2.0 28 04/27/19 08:00 73 04/27/19 07:41 95 Nasal Cannula 2.0 28 04/27/19 05:06 78 149/95 04/27/19 04:00 96.8 78 19 149/95 (113) 98 04/27/19 04:00 2.0 04/27/19 03:27 76 04/27/19 00:13 83 144/89 04/27/19 00:00 2.0 04/27/19 00:00 98.9 83 19 144/89 (107) 98 04/26/19 23:40 85 6/25/19 21:00 Nasal Cannula 2.0 04/26/19 20:00 97.3 87 18 147/93 (111) 98 04/26/19 20:00 2.0 04/26/19 19:48 83 20 98 Nasal Cannula 2.0 28 04/26/19 19:44 90 24 94 Nasal Cannula 2.0 28 04/26/19 19:43 90 24 94 Nasal Cannula 2.0 28 04/26/19 19:42 94 Nasal Cannula 2.0 28 04/26/19 19:03 87 04/26/19 17:44 183/123 04/26/19 17:44 92 183/123 04/26/19 16:00 90 04/26/19 16:00 97.3 92 18 183/123 (143) 95 04/26/19 16:00 2.0 Intake and Output 04/26/19 04/27/19 19:00 07:00 Intake Total 360 ml 950 ml Output Total 300 ml Balance 60 ml 950 ml Intake Oral 360 ml 950 ml Output Urine Total 300 ml # Voids 6 Laboratory Tests 04/26/19 16:00: Urine Color Pale yellow, Urine Appearance Slightly cloudy, Urine pH 5, Urine Specific [place] 1.020, Urine Protein 4+H, Urine Glucose (UA) Negative, Urine Ketones Negative, Urine Blood 2+H, Urine Nitrite Negative, Urine Bilirubin Negative, Urine Urobilinogen Normal, Urine Leukocyte Esterase Negative, Urine RBC 10-15H, Urine WBC 0-2, Urine Squamous Epithelial Cells Occasional, Urine Bacteria Few, Urine Hyaline Casts 10-15H, Urine Fine Granular Casts 2-4H, Urine Eosinophils None seen, Urine Osmolality 365L, Urine Random Creatinine [Pending] , Urine Random Microalbumin [Pending], Urine Random Sodium 61, Urine Microalbumin/Creatinine Ratio [Pending], Urine Potassium Timed 43 04/26/19 20:00: Troponin I 0.069H 04/27/19 04:00: White Blood Count 11.5#H, Red Blood Count 2.92L, Hemoglobin 8.3L, Hematocrit 25.1L, Mean Corpuscular Volume 86, Mean Corpuscular Hemoglobin 28.6, Mean Corpuscular Hemoglobin Concent 33.3, Red Cell Distribution Width 14.5, Platelet Count 351, Mean Platelet Volume 4.4L, Neutrophils (%) (Auto) 76.4H, Lymphocytes (%) (Auto) 15.7L, Monocytes (%) (Auto) 5.7, Eosinophils (%) (Auto) 1.7, Basophils (%) (Auto) 0.5 04/27/19 07:02: Troponin I 0.049, Sodium Level 139, Potassium Level 3.7, Chloride Level 107, Carbon Dioxide Level 22, Anion Gap 11, Blood Urea Nitrogen 45H, Creatinine 3.4H , Estimat Glomerular Filtration Rate 18.3, Glucose Level 110H, Calcium Level 7.7L, Phosphorus Level 4.5, Magnesium Level 2.1, Total Bilirubin 0.3, Aspartate Amino Transf (AST/SGOT) 20, Alanine Aminotransferase (ALT/SGPT) 18, Alkaline Phosphatase 88, Pro-B-Type Natriuretic Peptide 03945V, Total Protein 4.9L, Albumin 2.1L, Globulin 2.8, Albumin/Globulin Ratio 0.7L, Triglycerides Level 224H, Cholesterol Level 390H, LDL Cholesterol 272H, HDL Cholesterol 34L, Cholesterol/HDL Ratio 11.5H, Thyroid Stimulating Hormone (TSH) 3.402, Free Thyroxine 1.30 Height (Feet): 6 Height (Inches): 0.00 Weight (Pounds): 215 General Appearance: lethargic EENT: normal ENT inspection Neck: normal alignment Cardiovascular: normal peripheral pulses, normal rate, regular rhythm Respiratory/Chest: chest wall non-tender, lungs clear, normal breath sounds Abdomen: normal bowel sounds, non tender, soft Extremities: normal inspection Edema: no edema noted Arm (L), no edema noted Arm (R), no edema noted Leg (L), no edema noted Leg (R), no edema noted Pedal (L), no edema noted Pedal (R), no edema noted Generalized Neurologic: responsive, motor weakness Skin: normal pigmentation, warm/dry Rick Marquez DO Apr 27, 2019 14:36
--- NOTE | 2019-04-27 15:00 | NUR ---
NURSE NOTES: Patient complained that his IV was causing pain, so I removed the IV. The IV site did not display any signs of redness or swelling. I attempted to obtain new IV access, but the patient refused at this time. Patient sitting up in a chair. He does not display any signs of distress or SOB.
--- NOTE | 2019-04-27 15:46 | NUR ---
HOMELESS COORDINATOR HC spoke with patient and patient is alert and oriented. Patient does not have contact number. Patient states he is un able to walk and would like a walker. Patient is currently living at a Transitional Housing [address] [place] [id number] . Patient has been living at this location since March 2019. Patient states he is very unhappy at his location and would like placement at a board and care or assisted living. patient states he feels threatened at his transitional housing. Patient has no change person. Patient states he receives about $800 in SSI. Patient states he is currently only using medical marijuanas. Patient states he does suffer from mental illness from time to time hearing voices. Patient refuses resources for mental health. Patient does not have a PCP and would like resource for free clinics nearby for his follow-up appointment. Patient would also like information regarding Access program for transportation. HC will provide resources for clinic and the application for Access. Patient continues to require medical intervention. Will continue to monitor and assist as needed
[2019-04-27 16:00] VITALS: BP 157/91
[2019-04-27 16:43] LABS: CREATININE 3.4 MG/DL (0.55-1.30)
--- NOTE | 2019-04-27 16:49 | Nephrology Progress Note ---
Assessment/Plan Problem List: (1) CRF (chronic renal failure) (2) Hypertension (3) Anemia, unspecified (4) Acute exacerbation of CHF (congestive heart failure) (5) Hypercholesteremia Assessment: likely due to NS Assessment Chronic renal Failure- Sever HypoAlbuminemia, h/o Nephrotic Syndrome , Etiology??? CHF HTN Anemia Schizophrenia Plan Iron studies, noted EPO SQ 24 H Urine protein and CrCl PENDING Keep BP in check 2D echo 55% EjFx MAVERICK Kidney neg for obstruction per orders Subjective ROS Limited/Unobtainable: No Constitutional: Reports: malaise Objective Objective Last 24 Hour Vital Signs Date Time Temp Pulse Resp B/P (MAP) Pulse Ox O2 Delivery O2 Flow Rate FiO2 04/27/19 16:00 2.0 04/27/19 16:00 97.4 67 20 157/91 (113) 96 04/27/19 12:31 97.8 04/27/19 12:00 2.0 04/27/19 12:00 75 175/94 04/27/19 12:00 75 04/27/19 11:49 97.8 75 18 175/94 (121) 96 04/27/19 09:00 Nasal Cannula 2.0 04/27/19 08:00 98.3 69 20 153/89 (110) 96 04/27/19 08:00 2.0 28 04/27/19 08:00 73 04/27/19 07:41 95 Nasal Cannula 2.0 28 04/27/19 05:06 78 149/95 04/27/19 04:00 96.8 78 19 149/95 (113) 98 04/27/19 04:00 2.0 04/27/19 03:27 76 04/27/19 00:13 83 144/89 04/27/19 00:00 2.0 04/27/19 00:00 98.9 83 19 144/89 (107) 98 04/26/19 23:40 85 04/26/19 21:00 Nasal Cannula 2.0 04/26/19 20:00 97.3 87 18 147/93 (111) 98 04/26/19 20:00 2.0 04/26/19 19:48 83 20 98 Nasal Cannula 2.0 28 04/26/19 19:44 90 24 94 Nasal Cannula 2.0 28 04/26/19 19:43 90 24 94 Nasal Cannula 2.0 28 04/26/19 19:42 94 Nasal Cannula 2.0 28 04/26/19 19:03 87 04/26/19 17:44 183/123 04/26/19 17:44 92 183/123 Intake and Output 04/26/19 04/27/19 19:00 07:00 Intake Total 360 ml 950 ml Output Total 300 ml Balance 60 ml 950 ml Intake Oral 360 ml 950 ml Output Urine Total 300 ml # Voids 6 Laboratory Tests 04/26/19 20:00: Troponin I 0.069H 04/27/19 04:00: White Blood Count 11.5#H, Red Blood Count 2.92L, Hemoglobin 8.3L, Hematocrit 25.1L, Mean Corpuscular Volume 86, Mean Corpuscular Hemoglobin 28.6, Mean Corpuscular Hemoglobin Concent 33.3, Red Cell Distribution Width 14.5, Platelet Count 351, Mean Platelet Volume 4.4L, Neutrophils (%) (Auto) 76.4H, Lymphocytes (%) (Auto) 15.7L, Monocytes (%) (Auto) 5.7, Eosinophils (%) (Auto) 1.7, Basophils (%) (Auto) 0.5 04/27/19 07:02: Troponin I 0.049, Sodium Level 139, Potassium Level 3.7, Chloride Level 107, Carbon Dioxide Level 22, Anion Gap 11, Blood Urea Nitrogen 45H, Creatinine 3.4H , Estimat Glomerular Filtration Rate 18.3, Glucose Level 110H, Calcium Level 7.7L, Phosphorus Level 4.5, Magnesium Level 2.1, Total Bilirubin 0.3, Aspartate Amino Transf (AST/SGOT) 20, Alanine Aminotransferase (ALT/SGPT) 18, Alkaline Phosphatase 88, Pro-B-Type Natriuretic Peptide 78404Z, Total Protein 4.9L, Albumin 2.1L, Globulin 2.8, Albumin/Globulin Ratio 0.7L, Triglycerides Level 224H, Cholesterol Level 390H, LDL Cholesterol 272H, HDL Cholesterol 34L, Cholesterol/HDL Ratio 11.5H, Thyroid Stimulating Hormone (TSH) 3.402, Free Thyroxine 1.30 Height (Feet): 6 Height (Inches): 0.00 Weight (Pounds): 215 Cardiovascular: arrhythmia Respiratory/Chest: decreased breath sounds Abdomen: distended Phani Boudreaux MD Apr 27, 2019 16:49
--- NOTE | 2019-04-27 18:56 | Cardiology Report ---
APPROVED REPORT EXAM: Two-dimensional and M-mode echocardiogram with Doppler and color Doppler. INDICATION LV FUNCTION M-Mode DIMENSIONS IVSd1.1 (0.7-1.1cm)Left Atrium (MM)5.0 (1.6-4.0cm) LVDd4.5 (3.5-5.6cm)Aortic Root3.3 (2.0-3.7cm) PWd1.0 (0.7-1.1cm)Aortic Cusp Exc.1.9 (1.5-2.0cm) IVSs1.7 cm LVDs2.0 (2.5-4.0cm) PWs1.5 cm Normal left ventricular chamber size, systolic function and wall motion . Left ventricular ejection fraction estimated to be 55-60%. Mild left ventricular hypertrophy by 2-D. No evidence of pericardial effusion. Large pleural effusion . Mild left atrial enlargement . Right cardiac chamber sizes are within normal limits. Aortic valve calcification with normal cusp excursion . Mildly thickened mitral valve leaflets with normal excursion. Mild mitral annulus and aortic root calcification. Pulmonic valve not well visualized. IVC at normal size with physiologic collapse . A color flow and spectral Doppler study was performed and revealed: Moderate aortic insufficiency . Mitral inflow indicates normal left ventricular diastolic function. Mild mitral regurgitation. Mild tricuspid regurgitation. Tricuspid systolic velocities suggests peak right ventricular systolic pressure of 37mmHg,consistent with mild pulmonary HTN.
[2019-04-27] MEDS ORDERED: Miralax 17gm pkt ORAL PRN (19:00)
--- NOTE | 2019-04-27 19:00 | NUR ---
NURSE NOTES: Report received from Hui NEVES. Patient is awake alert and oriented x4, no acute distress noted. Reporting no pain at this time. IV intact. Belongings checked and verified with transferring nurse. On 2L NC. Fall precautions maintained. Side rails upx3, bed low and locked, call light in reach, bed alarm armed. Will continue to monitor.
--- NOTE | 2019-04-27 19:25 | NUR ---
TRANSFER TO FLOOR: Patient transferred to [facility], per Dr. Boyle, Report given to PURA Agustin. Belongings and medications given to PURA Agustin.
--- NOTE | 2019-04-27 19:36 | NUR ---
HAND-OFF: Report given to Tamara NEVES. Patient is in stable condition.
--- NOTE | 2019-04-27 19:37 | NUR ---
NURSE NOTES: Received report & pt from PURA Agustin. Pt lying in bed, a&ox4, in room air. No s/s of acute distress & no c/o pain at this time. IV site intact & S/L'd Skin intact. Bed in lowest position, call light within reach. Will continue to monitor.
[2019-04-27] MEDS ORDERED: dilTIAZem HCl 25mg/5ml Inj IV PRN (19:45)
[2019-04-27 20:00] VITALS: BP 183/108
[2019-04-27] MEDS ORDERED: Epoetin Alfa-EPBX (NON ESRD)10,000 unit/ml vial SUBQ SCH (21:00)
[2019-04-27] MEDS ORDERED: Albuterol/Ipratropium 3ml neb HHN PRN (21:00)
--- NOTE | 2019-04-27 21:30 | NUR ---
NURSE NOTES: Called Dr. Huitron & left msg re: Increased BP 183/108 HR of 80. Rechecked & went up to 197/118 HR of 86. No PRN med for increased BP. Also left msg for Dr. Boyle regarding the above concern & informed him that RN held scheduled epoetin nelson d/t BP>170. Dr. Boyle has new order for Clonidine 0.1mg PO Q6HR PRN for SBP>160. Order noted & carried out.
[2019-04-27] MEDS: Epoetin Alfa-EPBX (NON ESRD)10,000 unit/ml vial SUBQ SCH (21:37)
--- NOTE | 2019-04-27 22:19 | NUR ---
NURSE NOTES: Dr. Huitron called back with new order to increase Clonidine to 2mg PO Q2HR PRN for SBP>170
[2019-04-27] MEDS ORDERED: cloNIDine 0.2mg Tab ORAL PRN (22:30)
[2019-04-28] VITALS (10 sets, daily range): BP systolic 144–196; BP diastolic 81–118
[2019-04-28] MEDS: dilTIAZem HCl 60mg tab ORAL SCH ×4 (00:42→18:02)
[2019-04-28] MEDS: Albuterol/Ipratropium 3ml neb HHN SCH ×7 (02:25→23:25)
--- NOTE | 2019-04-28 07:30 | NUR ---
HAND-OFF: Report given to [facility]. Pt in stable condition. Rounds done.
--- NOTE | 2019-04-28 07:30 | NUR ---
NURSE NOTES: Report received from Tamara NEVES, rounds made. Patient resting in semi-fowlers position, in bed. No distress on O2 2LNC. RFA heplock intact. Patient denies pain, SOB or NV. Voids in urinal. +2 pitting edema to BLE. Skin intact. Denies CP. Call light in reach, bed in lowest position, will continue to monitor.
[2019-04-28 07:42] LABS: HEMATOCRIT 22.8 % (42.0-52.0); HEMOGLOBIN 7.8 G/DL (14.2-18.0); MEAN CORPUSCULAR VOLUME 85 FL (80-99); PLATELET COUNT 316 K/UL (150-450); RED BLOOD COUNT 2.68 M/UL (4.70-6.10); RED CELL DISTRIBUTION WIDTH 14.3 % (11.6-14.8); WHITE BLOOD COUNT 11.7 K/UL (4.8-10.8)
[2019-04-28 08:07] LABS: ALANINE AMINOTRANSFERASE 14 U/L (12-78); ALBUMIN 1.8 G/DL (3.4-5.0); ALBUMIN/GLOBULIN RATIO 0.5 (1.0-2.7); ALKALINE PHOSPHATASE 84 U/L (46-116); ANION GAP 11 mmol/L (5-15); ASPARTATE AMINO TRANSFERASE 14 U/L (15-37); BILIRUBIN,TOTAL 0.3 MG/DL (0.2-1.0); BLOOD UREA NITROGEN 47 mg/dL (7-18); CALCIUM 7.6 MG/DL (8.5-10.1); CARBON DIOXIDE 21 MMOL/L (21-32); CHLORIDE 105 MMOL/L (98-107); CREATININE 3.6 MG/DL (0.55-1.30); POTASSIUM 3.6 MMOL/L (3.5-5.1); SODIUM 137 MMOL/L (136-145)
[2019-04-28 08:17] LABS: PHOSPHORUS 4.1 MG/DL (2.5-4.9)
[2019-04-28] MEDS: Amiodarone 200mg tab ORAL SCH ×2 (09:31→21:45)
[2019-04-28] MEDS: Docusate 100mg cap ORAL SCH ×2 (09:31→18:02)
[2019-04-28] MEDS: Eliquis 2.5mg tablet ORAL SCH ×2 (09:32→18:01)
--- NOTE | 2019-04-28 10:40 | Cardiac Electrophysiology PN ---
Assessment/Plan Assessment/Plan 1. Atrial fibrillation with rapid ventricular response. The EKG on 10/25/19 showed atrial fibrillation, heart rate 150 beats per minute. A 12-lead EKG from 10/26/19 at 7:11 a.m. shows sinus rhythm with first-degree AV block with left posterior fascicular block as well as inferolateral ischemia on the EKG. On Cardizem 60 mg every 6 hours and decrease amiodarone to 400 daily and Eliquis 2.5 bid 2. Congestive heart failure with BNP > 33859. Echocardiogram showed EF of 55% with diastolic dysfunction. Continue Lasix 40 mg IV every 8 hours as well as Cardizem. Likely due to volume overload due to renal failure. 3. Hypertension. Blood pressure was in 200. Continue Lasix and Cardizem. 4. Acute renal failure. BUN/CR 45/3.4 ? Nephrotic syndrome. FU Dr Boudreaux. May need HD 5. History of schizophrenia. Further evaluation by Psychiatry. MIKE RN and Dr Marquez Subjective Subjective Alert in NAD. On Iv Lasix 40 tid. Objective Last 24 Hour Vital Signs Date Time Temp Pulse Resp B/P (MAP) Pulse Ox O2 Delivery O2 Flow Rate FiO2 04/28/19 08:12 81 20 98 Nasal Cannula 2.0 28 04/28/19 08:06 81 24 95 Nasal Cannula 2.0 28 04/28/19 08:00 97.8 79 18 144/81 (102) 93 04/28/19 05:59 100 162/103 04/28/19 04:59 99.2 100 17 162/103 (122) 93 04/28/19 02:33 84 20 99 Nasal Cannula 2.0 28 04/28/19 02:25 79 20 97 Nasal Cannula 2.0 28 04/28/19 00:43 196/110 04/28/19 00:42 86 196/110 04/28/19 00:00 97.8 86 17 196/110 (138) 92 04/27/19 22:30 87 20 99 Nasal Cannula 2.0 28 04/27/19 22:04 183/108 04/27/19 21:23 95 Nasal Cannula 2.0 28 04/27/19 21:22 86 22 95 Nasal Cannula 2.0 04/27/19 21:00 Nasal Cannula 2.0 04/27/19 20:00 97.8 80 18 183/108 (133) 94 04/27/19 17:19 70 157/91 04/27/19 16:00 2.0 04/27/19 16:00 70 04/27/19 16:00 97.4 67 20 157/91 (113) 96 04/27/19 12:31 97.8 04/27/19 12:00 2.0 04/27/19 12:00 75 175/94 04/27/19 12:00 75 04/27/19 11:49 97.8 75 18 175/94 (121) 96 Intake and Output 04/27/19 04/28/19 18:59 06:59 Intake Total 480 ml 240 ml Output Total 550 ml 1900 ml Balance -70 ml -1660 ml Intake Oral 480 ml 240 ml Output Urine Total 550 ml 1900 ml # Voids 5 Laboratory Tests Test 04/27/19 19:45 04/28/19 06:31 Troponin I 0.036 ng/mL (0.000-0.056) 0.037 ng/mL (0.000-0.056) White Blood Count 11.7 K/UL (4.8-10.8) H Red Blood Count 2.68 M/UL (4.70-6.10) L Hemoglobin 7.8 G/DL (14.2-18.0) L Hematocrit 22.8 % (42.0-52.0) L Mean Corpuscular Volume 85 FL (80-99) Mean Corpuscular Hemoglobin 29.0 PG (27.0-31.0) Mean Corpuscular Hemoglobin Concent 34.1 G/DL (32.0-36.0) Red Cell Distribution Width 14.3 % (11.6-14.8) Platelet Count 316 K/UL (150-450) Mean Platelet Volume 4.7 FL (6.5-10.1) L Neutrophils (%) (Auto) % (45.0-75.0) Lymphocytes (%) (Auto) % (20.0-45.0) Monocytes (%) (Auto) % (1.0-10.0) Eosinophils (%) (Auto) % (0.0-3.0) Basophils (%) (Auto) % (0.0-2.0) Differential Total Cells Counted 100 Neutrophils % (Manual) 88 % (45-75) H Lymphocytes % (Manual) 7 % (20-45) L Monocytes % (Manual) 4 % (1-10) Eosinophils % (Manual) 0 % (0-3) Basophils % (Manual) 0 % (0-2) Band Neutrophils 1 % (0-8) Platelet Estimate Adequate Platelet Morphology Normal Erythrocyte Sedimentation Rate 128 MM/HR (0-20) H Sodium Level 137 MMOL/L (136-145) Potassium Level 3.6 MMOL/L (3.5-5.1) Chloride Level 105 MMOL/L (98-107) Carbon Dioxide Level 21 MMOL/L (21-32) Anion Gap 11 mmol/L (5-15) Blood Urea Nitrogen 47 mg/dL (7-18) H Creatinine 3.6 MG/DL (0.55-1.30) H Estimat Glomerular Filtration Rate 17.2 mL/min (>60) Glucose Level 127 MG/DL (74-106) H Uric Acid 8.0 MG/DL (2.6-7.2) H Calcium Level 7.6 MG/DL (8.5-10.1) L Phosphorus Level 4.1 MG/DL (2.5-4.9) Magnesium Level 1.8 MG/DL (1.5-2.4) Total Bilirubin 0.3 MG/DL (0.2-1.0) Aspartate Amino Transf (AST/SGOT) 14 U/L (15-37) L Alanine Aminotransferase (ALT/SGPT) 14 U/L (12-78) Alkaline Phosphatase 84 U/L (46-116) Pro-B-Type Natriuretic Peptide 69924 pg/mL (0-125) H Total Protein 5.2 G/DL (6.4-8.2) L Albumin 1.8 G/DL (3.4-5.0) L Globulin 3.4 g/dL Albumin/Globulin Ratio 0.5 (1.0-2.7) L Microbiology Date/Time Source Procedure Growth Status 04/26/19 08:00 Nasal Nares Left MRSA Culture - Final NO METHICILLIN RESISTANT STAPH AUREUS... Complete 04/26/19 08:00 Rectum VRE Culture - Final NO VANCOMYCIN RESISTANT ENTEROCOCCUS ... Complete Objective HEAD AND NECK: No JVD or carotid bruit. LUNGS: Have decreased breath sounds. CARDIOVASCULAR: Regular S1 and S2 with no gallop or murmur. ABDOMEN: Soft. EXTREMITIES: 2+ pitting edema and scrotal edema. Davy Huitron MD Apr 28, 2019 10:40
--- NOTE | 2019-04-28 12:32 | NUR ---
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
--- NOTE | 2019-04-28 12:33 | Diagnostic Imaging Report ---
APPROVED REPORT CPT Code: 39193 Present Symptoms Lower Extremity Edema: Comments: Swelling CHF BILATERAL: Imaging reveals a patent deep venous system bilaterally. There is no evidence of thrombus within the common femoral, superficial femoral, popliteal or tibial segments. The greater saphenous veins are within normal limits. Doppler indicates normal spontaneous flow within these segments.
--- NOTE | 2019-04-28 12:42 | Pulmonology Progress Note ---
Assessment/Plan Problems: (1) Renal anasarca (2) Nephrotic syndrome (3) Hypertension (4) CRF (chronic renal failure) (5) Anemia, unspecified Assessment/Plan continue Cardizem 60 mg every 6 hours amiodarone to 400 daily Eliquis 2.5 bid on Lasix.,40 Q8, watch bun/creatinine, slowly rising monitor BP, better than admission Renal US noted, chronic renal disease, ? etiology dvt prophylaxis. Subjective ROS Limited/Unobtainable: No Constitutional: Reports: no symptoms HEENT: Repors: no symptoms Allergies: Coded Allergies: Dairy (Verified Allergy, Unknown, 04/25/19) PENICILLINS (Verified Allergy, Unknown, 04/25/19) Objective Last 24 Hour Vital Signs Date Time Temp Pulse Resp B/P (MAP) Pulse Ox O2 Delivery O2 Flow Rate FiO2 04/28/19 11:50 98.3 17 158/85 (109) 98 04/28/19 11:23 84 20 99 Nasal Cannula 2.0 04/28/19 11:15 83 20 96 Nasal Cannula 2.0 04/28/19 08:12 81 20 98 Nasal Cannula 2.0 28 04/28/19 08:06 81 24 95 Nasal Cannula 2.0 28 04/28/19 08:00 97.8 79 18 144/81 (102) 93 04/28/19 05:59 100 162/103 04/28/19 04:59 99.2 100 17 162/103 (122) 93 04/28/19 02:33 84 20 99 Nasal Cannula 2.0 04/28/19 02:25 79 20 97 Nasal Cannula 2.0 04/28/19 00:43 196/110 04/28/19 00:42 86 196/110 04/28/19 00:00 97.8 86 17 196/110 (138) 92 04/27/19 22:30 87 20 99 Nasal Cannula 2.0 04/27/19 22:04 183/108 04/27/19 21:23 95 Nasal Cannula 2.0 04/27/19 21:22 86 22 95 Nasal Cannula 2.0 04/27/19 21:00 Nasal Cannula 2.0 04/27/19 20:00 97.8 80 18 183/108 (133) 94 04/27/19 17:19 70 157/91 04/27/19 16:00 2.0 04/27/19 16:00 70 04/27/19 16:00 97.4 67 20 157/91 (113) 96 Intake and Output 04/27/19 04/28/19 18:59 06:59 Intake Total 480 ml 240 ml Output Total 550 ml 1900 ml Balance -70 ml -1660 ml Intake Oral 480 ml 240 ml Output Urine Total 550 ml 1900 ml # Voids 5 General Appearance: WD/WN HEENT: normocephalic, atraumatic Respiratory/Chest: chest wall non-tender, lungs clear Cardiovascular: normal peripheral pulses Abdomen: normal bowel sounds Extremities: other Neurologic/Psychiatric: 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 Complete 04/26/19 08:00 Rectum VRE Culture - Final NO VANCOMYCIN RESISTANT ENTEROCOCCUS ... Complete Laboratory Tests 04/27/19 19:45: Troponin I 0.036 04/28/19 06:31: Troponin I 0.037, White Blood Count 11.7H, Red Blood Count 2.68L, Hemoglobin 7.8L, Hematocrit 22.8L, Mean Corpuscular Volume 85, Mean Corpuscular Hemoglobin 29.0, Mean Corpuscular Hemoglobin Concent 34.1, Red Cell Distribution Width 14.3 , Platelet Count 316, Mean Platelet Volume 4.7L, Neutrophils (%) (Auto) , Lymphocytes (%) (Auto) , Monocytes (%) (Auto) , Eosinophils (%) (Auto) , Basophils (%) (Auto) , Differential Total Cells Counted 100, Neutrophils % ( Manual) 88H, Lymphocytes % (Manual) 7L, Monocytes % (Manual) 4, Eosinophils % ( Manual) 0, Basophils % (Manual) 0, Band Neutrophils 1, Platelet Estimate Adequate, Platelet Morphology Normal, Erythrocyte Sedimentation Rate 128H, Sodium Level 137, Potassium Level 3.6, Chloride Level 105, Carbon Dioxide Level 21, Anion Gap 11, Blood Urea Nitrogen 47H, Creatinine 3.6H, Estimat Glomerular Filtration Rate 17.2, Glucose Level 127H, Uric Acid 8.0H, Calcium Level 7.6L, Phosphorus Level 4.1, Magnesium Level 1.8, Total Bilirubin 0.3, Aspartate Amino Transf (AST/SGOT) 14L, Alanine Aminotransferase (ALT/SGPT) 14, Alkaline Phosphatase 84, Pro-B-Type Natriuretic Peptide 22193S, Total Protein 5.2L, Albumin 1.8L, Globulin 3.4, Albumin/Globulin Ratio 0.5L Current Medications Medications (Trade) Dose Ordered Sig/Hans Route PRN Reason Start Time Stop Time Status Last Admin Dose Admin Acetaminophen (Tylenol) 650 mg Q4H PRN ORAL Fever (T>100.5 F) 04/27/19 19:00 05/25/19 22:59 Albuterol/ Ipratropium (Albuterol/ Ipratropium) 3 ml Q4HRT HHN 04/28/19 01:00 05/03/19 00:59 04/28/19 11:20 Amiodarone HCl (Cordarone) 200 mg EVERY 12 HOURS ORAL 04/28/19 21:00 05/26/19 20:59 Apixaban (Eliquis) 2.5 mg BID ORAL 04/28/19 09:00 05/26/19 17:59 04/28/19 09:32 Clonidine HCl (Catapres tab) 0.2 mg Q2H PRN ORAL For SBP>170 04/27/19 22:30 05/27/19 22:29 04/28/19 00:43 Dextrose (Dextrose 50%) 25 ml Q30M PRN IV Hypoglycemia 04/27/19 19:00 05/25/19 22:59 Dextrose (Dextrose 50%) 50 ml Q30MIN PRN IV Hypoglycemia 04/27/19 19:00 05/25/19 22:59 Diltiazem HCl (Cardizem) 60 mg EVERY 6 HOURS ORAL 04/28/19 00:00 05/26/19 11:59 04/28/19 05:59 Docusate Sodium (Colace) 100 mg TWICE A DAY ORAL 04/28/19 09:00 05/26/19 17:59 04/28/19 09:31 Epoetin Milton (Epoetin Milton-EPBX(NON ESRD)) 10,000 unit THU-THU-THU SUBQ 04/27/19 21:00 05/27/19 20:59 Furosemide (Lasix) 40 mg EVERY 8 HOURS IV 04/27/19 22:00 05/26/19 05:59 04/28/19 05:59 Nicotine (Nicoderm) 1 patch Q24H TDERMAL 04/28/19 18:00 05/27/19 17:59 Ondansetron HCl (Zofran) 4 mg Q6H PRN IVP Nausea & Vomiting 04/27/19 19:00 05/25/19 18:59 Pantoprazole (Protonix) 40 mg Q12HR ORAL 04/27/19 21:00 05/26/19 20:59 04/28/19 09:31 Polyethylene Glycol (Miralax) 17 gm DAILYPRN PRN ORAL Constipation 04/27/19 19:00 05/25/19 18:59 Temazepam (Restoril) 15 mg HSPRN PRN ORAL Insomnia 04/27/19 21:00 05/02/19 20:59 04/27/19 21:12 Lorenza Boyle MD Apr 28, 2019 12:42
--- NOTE | 2019-04-28 14:40 | General Progress Note ---
Assessment/Plan Problem List: (1) Acute exacerbation of CHF (congestive heart failure) ICD Codes: I50.9 - Heart failure, unspecified SNOMED: 598597605, [id number] Qualifiers: Qualified Codes: I50.9 - Heart failure, unspecified (2) Hypertension ICD Codes: I10 - Essential (primary) hypertension SNOMED: 60903649, [id number] Qualifiers: Qualified Codes: I10 - Essential (primary) hypertension (3) Anemia, unspecified ICD Codes: D64.9 - Anemia, unspecified SNOMED: 057937897 Qualifiers: Qualified Codes: D64.9 - Anemia, unspecified (4) Renal anasarca ICD Codes: N04.9 - Nephrotic syndrome with unspecified morphologic changes SNOMED: 30797841104068 Status: stable, progressing Assessment/Plan: o2 pulm tx cardio f/u pt diet cbc bmp am dc plan snf Subjective Constitutional: Reports: weakness Allergies: Coded Allergies: Dairy (Verified Allergy, Unknown, 04/25/19) PENICILLINS (Verified Allergy, Unknown, 04/25/19) All Systems: reviewed and negative except above Subjective o2nc sleepy Objective Last 24 Hour Vital Signs Date Time Temp Pulse Resp B/P (MAP) Pulse Ox O2 Delivery O2 Flow Rate FiO2 04/28/19 12:46 84 158/85 04/28/19 11:50 98.3 17 158/85 (109) 98 04/28/19 11:23 84 20 99 Nasal Cannula 2.0 04/28/19 11:15 83 20 96 Nasal Cannula 2.0 04/28/19 08:12 81 20 98 Nasal Cannula 2.0 04/28/19 08:06 81 24 95 Nasal Cannula 2.0 28 04/28/19 08:00 97.8 79 18 144/81 (102) 93 04/28/19 05:59 100 162/103 04/28/19 04:59 99.2 100 17 162/103 (122) 93 04/28/19 02:33 84 20 99 Nasal Cannula 2.0 04/28/19 02:25 79 20 97 Nasal Cannula 2.0 04/28/19 00:43 196/110 04/28/19 00:42 86 196/110 04/28/19 00:00 97.8 86 17 196/110 (138) 92 04/27/19 22:30 87 20 99 Nasal Cannula 2.0 28 04/27/19 22:04 183/108 04/27/19 21:23 95 Nasal Cannula 2.0 28 04/27/19 21:22 86 22 95 Nasal Cannula 2.0 28 04/27/19 21:00 Nasal Cannula 2.0 04/27/19 20:00 97.8 80 18 183/108 (133) 94 04/27/19 17:19 70 157/91 04/27/19 16:00 2.0 04/27/19 16:00 70 04/27/19 16:00 97.4 67 20 157/91 (113) 96 Intake and Output 04/27/19 04/28/19 19:00 07:00 Intake Total 480 ml 240 ml Output Total 550 ml 2250 ml Balance -70 ml -2010 ml Intake Oral 480 ml 240 ml Output Urine Total 550 ml 2250 ml # Voids 5 Laboratory Tests 04/27/19 19:45: Troponin I 0.036 04/28/19 06:31: Troponin I 0.037, White Blood Count 11.7H, Red Blood Count 2.68L, Hemoglobin 7.8L, Hematocrit 22.8L, Mean Corpuscular Volume 85, Mean Corpuscular Hemoglobin 29.0, Mean Corpuscular Hemoglobin Concent 34.1, Red Cell Distribution Width 14.3 , Platelet Count 316, Mean Platelet Volume 4.7L, Neutrophils (%) (Auto) , Lymphocytes (%) (Auto) , Monocytes (%) (Auto) , Eosinophils (%) (Auto) , Basophils (%) (Auto) , Differential Total Cells Counted 100, Neutrophils % ( Manual) 88H, Lymphocytes % (Manual) 7L, Monocytes % (Manual) 4, Eosinophils % ( Manual) 0, Basophils % (Manual) 0, Band Neutrophils 1, Platelet Estimate Adequate, Platelet Morphology Normal, Erythrocyte Sedimentation Rate 128H, Sodium Level 137, Potassium Level 3.6, Chloride Level 105, Carbon Dioxide Level 21, Anion Gap 11, Blood Urea Nitrogen 47H, Creatinine 3.6H, Estimat Glomerular Filtration Rate 17.2, Glucose Level 127H, Uric Acid 8.0H, Calcium Level 7.6L, Phosphorus Level 4.1, Magnesium Level 1.8, Total Bilirubin 0.3, Aspartate Amino Transf (AST/SGOT) 14L, Alanine Aminotransferase (ALT/SGPT) 14, Alkaline Phosphatase 84, Pro-B-Type Natriuretic Peptide 35384Z, Total Protein 5.2L, Albumin 1.8L, Globulin 3.4, Albumin/Globulin Ratio 0.5L Height (Feet): 6 Height (Inches): 0.00 Weight (Pounds): 215 General Appearance: lethargic EENT: normal ENT inspection Neck: normal alignment Cardiovascular: normal peripheral pulses, normal rate, regular rhythm Respiratory/Chest: chest wall non-tender, lungs clear, normal breath sounds Abdomen: normal bowel sounds, non tender, soft Extremities: normal inspection Edema: no edema noted Arm (L), no edema noted Arm (R), no edema noted Leg (L), no edema noted Leg (R), no edema noted Pedal (L), no edema noted Pedal (R), no edema noted Generalized Neurologic: motor weakness Skin: normal pigmentation, warm/dry Rick Marquez DO Apr 28, 2019 14:40
--- NOTE | 2019-04-28 15:58 | Nephrology Progress Note ---
Assessment/Plan Problem List: (1) CRF (chronic renal failure) (2) Hypertension (3) Anemia, unspecified (4) Acute exacerbation of CHF (congestive heart failure) (5) Hypercholesteremia Assessment: likely due to NS Assessment Chronic renal Failure- Sever HypoAlbuminemia, h/o Nephrotic Syndrome , Etiology??? CHF HTN Anemia Schizophrenia Plan Iron studies, noted EPO SQ 24 H Urine protein and CrCl PENDING Keep BP in check 2D echo 55% EjFx MAVERICK Kidney neg for obstruction per orders Kidney Bx has diagnostic indication Subjective ROS Limited/Unobtainable: No Constitutional: Reports: malaise Objective Objective Last 24 Hour Vital Signs Date Time Temp Pulse Resp B/P (MAP) Pulse Ox O2 Delivery O2 Flow Rate FiO2 04/28/19 15:29 86 20 99 Nasal Cannula 2.0 28 04/28/19 15:19 87 20 97 Nasal Cannula 2.0 28 04/28/19 12:46 84 158/85 04/28/19 11:50 98.3 17 158/85 (109) 98 04/28/19 11:23 84 20 99 Nasal Cannula 2.0 28 04/28/19 11:15 83 20 96 Nasal Cannula 2.0 28 04/28/19 08:12 81 20 98 Nasal Cannula 2.0 28 04/28/19 08:06 81 24 95 Nasal Cannula 2.0 28 04/28/19 08:00 97.8 79 18 144/81 (102) 93 04/28/19 05:59 100 162/103 04/28/19 04:59 99.2 100 17 162/103 (122) 93 04/28/19 02:33 84 20 99 Nasal Cannula 2.0 28 04/28/19 02:25 79 20 97 Nasal Cannula 2.0 28 04/28/19 00:43 196/110 04/28/19 00:42 86 196/110 04/28/19 00:00 97.8 86 17 196/110 (138) 92 04/27/19 22:30 87 20 99 Nasal Cannula 2.0 28 04/27/19 22:04 183/108 04/27/19 21:23 95 Nasal Cannula 2.0 04/27/19 21:22 86 22 95 Nasal Cannula 2.0 04/27/19 21:00 Nasal Cannula 2.0 04/27/19 20:00 97.8 80 18 183/108 (133) 94 04/27/19 17:19 70 157/91 04/27/19 16:00 2.0 04/27/19 16:00 70 04/27/19 16:00 97.4 67 20 157/91 (113) 96 Intake and Output 04/27/19 04/28/19 19:00 07:00 Intake Total 480 ml 240 ml Output Total 550 ml 2250 ml Balance -70 ml -2010 ml Intake Oral 480 ml 240 ml Output Urine Total 550 ml 2250 ml # Voids 5 Laboratory Tests 04/27/19 19:45: Troponin I 0.036 04/28/19 06:31: Troponin I 0.037, White Blood Count 11.7H, Red Blood Count 2.68L, Hemoglobin 7.8L, Hematocrit 22.8L, Mean Corpuscular Volume 85, Mean Corpuscular Hemoglobin 29.0, Mean Corpuscular Hemoglobin Concent 34.1, Red Cell Distribution Width 14.3 , Platelet Count 316, Mean Platelet Volume 4.7L, Neutrophils (%) (Auto) , Lymphocytes (%) (Auto) , Monocytes (%) (Auto) , Eosinophils (%) (Auto) , Basophils (%) (Auto) , Differential Total Cells Counted 100, Neutrophils % ( Manual) 88H, Lymphocytes % (Manual) 7L, Monocytes % (Manual) 4, Eosinophils % ( Manual) 0, Basophils % (Manual) 0, Band Neutrophils 1, Platelet Estimate Adequate, Platelet Morphology Normal, Erythrocyte Sedimentation Rate 128H, Sodium Level 137, Potassium Level 3.6, Chloride Level 105, Carbon Dioxide Level 21, Anion Gap 11, Blood Urea Nitrogen 47H, Creatinine 3.6H, Estimat Glomerular Filtration Rate 17.2, Glucose Level 127H, Uric Acid 8.0H, Calcium Level 7.6L, Phosphorus Level 4.1, Magnesium Level 1.8, Total Bilirubin 0.3, Aspartate Amino Transf (AST/SGOT) 14L, Alanine Aminotransferase (ALT/SGPT) 14, Alkaline Phosphatase 84, Pro-B-Type Natriuretic Peptide 46721E, Total Protein 5.2L, Albumin 1.8L, Globulin 3.4, Albumin/Globulin Ratio 0.5L Height (Feet): 6 Height (Inches): 0.00 Weight (Pounds): 215 General Appearance: no apparent distress Respiratory/Chest: decreased breath sounds Abdomen: distended Extremities: other - swollen Phani Boudreaux MD Apr 28, 2019 15:58
--- NOTE | 2019-04-28 18:00 | NUR ---
NURSE NOTES: Patient updated with new orders for blood transfusion, reviewed indication and risks, consent signed. First unit started at 1721. No reaction at this time. Vitals obtained pre-transfusion and 15 mins after transfusion started. Strict I&Os followed throughout shift.
--- NOTE | 2019-04-28 19:30 | NUR ---
HAND-OFF: Report given to Tamara NEVES. Endorsed first unit of PRBCs currently running at 100 ml/hr, started at 1721.
[2019-04-28] MEDS: OLANZapine 2.5mg tab ORAL SCH (21:45)
[2019-04-28] MEDS: TraZODone HCl 25 mg tablet ORAL SCH (21:45)
[2019-04-28] MEDS: Wixela 100/50 Inhaler - 60 dose INH SCH (23:25)
[2019-04-29] VITALS (12 sets, daily range): BP systolic 146–181; BP diastolic 88–104
--- NOTE | 2019-04-29 00:20 | NUR ---
@2054 1st unit of PRBCs done infusing. Pt tolerated very well without adverse reactions. VSS. @2114 RN transfused 2nd unit of PRBCs ordered. No adverse reactions noted within 15mins of transfusion, VSS. @0020 2nd unit completed; VSS
[2019-04-29] MEDS: dilTIAZem HCl 60mg tab ORAL SCH ×3 (00:37→12:49)
[2019-04-29] MEDS: Albuterol/Ipratropium 3ml neb HHN SCH ×5 (03:02→23:07)
[2019-04-29 06:36] LABS: BASOPHILS % (AUTO) 0.4 % (0.0-2.0); EOSINOPHILS % (AUTO) 2.7 % (0.0-3.0); HEMATOCRIT 24.4 % (42.0-52.0); HEMOGLOBIN 8.4 G/DL (14.2-18.0); LYMPHOCYTES % (AUTO) 16.8 % (20.0-45.0); MEAN CORPUSCULAR VOLUME 86 FL (80-99); MONOCYTES % (AUTO) 8.3 % (1.0-10.0); NEUTROPHILS % (AUTO) 71.8 % (45.0-75.0); PLATELET COUNT 252 K/UL (150-450); RED BLOOD COUNT 2.83 M/UL (4.70-6.10); RED CELL DISTRIBUTION WIDTH 13.9 % (11.6-14.8); WHITE BLOOD COUNT 9.1 K/UL (4.8-10.8)
[2019-04-29 07:05] LABS: ANION GAP 13 mmol/L (5-15); BLOOD UREA NITROGEN 53 mg/dL (7-18); CALCIUM 7.5 MG/DL (8.5-10.1); CARBON DIOXIDE 21 MMOL/L (21-32); CHLORIDE 107 MMOL/L (98-107); CREATININE 3.9 MG/DL (0.55-1.30); POTASSIUM 3.4 MMOL/L (3.5-5.1); SODIUM 141 MMOL/L (136-145)
--- NOTE | 2019-04-29 07:12 | NUR ---
HAND-OFF: Report given to [facility]. Pt in stable condition. Rounds done.
--- NOTE | 2019-04-29 07:15 | NUR ---
NURSE NOTES: Report received from Tamara NEVES, rounds made. Patient alert, oriented x4, calm. Denies pain at this time. Sitting in high fowlers position in bed, No distress on O2 3LNC. Voiding in urinal. RFA heplock intact. Call light in reach, bed in lowest position, will continue to monitor.
--- NOTE | 2019-04-29 08:15 | NUR ---
NURSE NOTES: Dr. Marquez notified of K 3.4. see orders.
--- NOTE | 2019-04-29 08:37 | General Progress Note ---
Assessment/Plan Problem List: (1) Acute exacerbation of CHF (congestive heart failure) ICD Codes: I50.9 - Heart failure, unspecified SNOMED: 911831637, [id number] Qualifiers: Qualified Codes: I50.9 - Heart failure, unspecified (2) Hypertension ICD Codes: I10 - Essential (primary) hypertension SNOMED: 98702481, [id number] Qualifiers: Qualified Codes: I10 - Essential (primary) hypertension (3) Anemia, unspecified ICD Codes: D64.9 - Anemia, unspecified SNOMED: 053335885 Qualifiers: Qualified Codes: D64.9 - Anemia, unspecified (4) Renal anasarca ICD Codes: N04.9 - Nephrotic syndrome with unspecified morphologic changes SNOMED: 91361785486715 Status: stable, progressing Assessment/Plan: o2 pulm tx cardio f/u pt diet cbc bmp am dc plan snf Subjective Constitutional: Reports: weakness Respiratory: Reports: shortness of breath Allergies: Coded Allergies: Dairy (Verified Allergy, Unknown, 04/25/19) PENICILLINS (Verified Allergy, Unknown, 04/25/19) All Systems: reviewed and negative except above Subjective o2nc sleepy Objective Last 24 Hour Vital Signs Date Time Temp Pulse Resp B/P (MAP) Pulse Ox O2 Delivery O2 Flow Rate FiO2 04/29/19 08:26 89 20 96 Nasal Cannula 2.0 04/29/19 08:00 97.4 83 20 174/99 (124) 93 04/29/19 05:42 80 160/94 04/29/19 04:59 98.8 80 18 160/94 (116) 95 04/29/19 03:11 85 20 98 Nasal Cannula 2.0 04/29/19 03:00 86 20 96 Nasal Cannula 2.0 04/29/19 00:37 173/102 04/29/19 00:37 87 173/102 04/29/19 00:30 98.3 87 18 173/102 (125) 94 04/28/19 23:36 77 24 98 Nasal Cannula 2.0 04/28/19 23:35 77 20 98 Nasal Cannula 2.0 04/28/19 23:31 94 24 93 Nasal Cannula 2.0 04/28/19 23:25 94 20 93 Nasal Cannula 2.0 04/28/19 21:00 Nasal Cannula 3.0 04/28/19 20:00 98.6 89 18 175/97 (123) 04/28/19 19:30 88 20 99 Nasal Cannula 2.0 04/28/19 19:05 79 152/91 (111) 04/28/19 19:02 82 20 96 Nasal Cannula 2.0 04/28/19 18:02 190/118 04/28/19 18:02 93 190/118 04/28/19 17:40 98.6 93 20 190/118 (142) 04/28/19 17:15 97.9 91 20 178/98 (124) 95 04/28/19 16:06 98.0 86 16 169/98 (121) 04/28/19 15:29 86 20 99 Nasal Cannula 2.0 04/28/19 15:19 87 20 97 Nasal Cannula 2.0 04/28/19 12:46 84 158/85 04/28/19 11:50 98.3 17 158/85 (109) 98 04/28/19 11:23 84 20 99 Nasal Cannula 2.0 04/28/19 11:15 83 20 96 Nasal Cannula 2.0 04/28/19 09:00 Nasal Cannula 2.0 Intake and Output 04/28/19 04/29/19 19:00 07:00 Intake Total 1919 ml 720 ml Output Total 600 ml 1300 ml Balance 1319 ml -580 ml Intake Oral 1739 ml 720 ml Blood Product 180 ml Output Urine Total 600 ml 1300 ml # Voids 4 Laboratory Tests 04/29/19 05:10: White Blood Count 9.1, Red Blood Count 2.83L, Hemoglobin 8.4L, Hematocrit 24.4L , Mean Corpuscular Volume 86, Mean Corpuscular Hemoglobin 29.7, Mean Corpuscular Hemoglobin Concent 34.4, Red Cell Distribution Width 13.9, Platelet Count 252, Mean Platelet Volume 4.8L, Neutrophils (%) (Auto) 71.8, Lymphocytes ( %) (Auto) 16.8L, Monocytes (%) (Auto) 8.3, Eosinophils (%) (Auto) 2.7, Basophils (%) (Auto) 0.4, Sodium Level 141, Potassium Level 3.4L, Chloride Level 107, Carbon Dioxide Level 21, Anion Gap 13, Blood Urea Nitrogen 53H, Creatinine 3.9H, Estimat Glomerular Filtration Rate 15.6, Glucose Level 122H, Calcium Level 7.5L Height (Feet): 6 Height (Inches): 0.00 Weight (Pounds): 213 General Appearance: lethargic EENT: normal ENT inspection Neck: normal alignment Cardiovascular: normal peripheral pulses, normal rate, regular rhythm Respiratory/Chest: chest wall non-tender, lungs clear, normal breath sounds Abdomen: normal bowel sounds, non tender, soft Extremities: normal inspection Edema: no edema noted Arm (L), no edema noted Arm (R), no edema noted Leg (L), no edema noted Leg (R), no edema noted Pedal (L), no edema noted Pedal (R), no edema noted Generalized Neurologic: responsive, motor weakness Skin: normal pigmentation, warm/dry Rick Marquez DO Apr 29, 2019 08:37
[2019-04-29] MEDS: Amiodarone 200mg tab ORAL SCH ×2 (09:08→21:18)
[2019-04-29] MEDS: Docusate 100mg cap ORAL SCH (09:08)
[2019-04-29] MEDS: Eliquis 2.5mg tablet ORAL SCH ×2 (09:08→18:08)
[2019-04-29] MEDS ORDERED: NS 500ML ONE (09:23)
[2019-04-29] MEDS ORDERED: Tubing Blood Filter IV ONE (09:23)
[2019-04-29] MEDS: Wixela 100/50 Inhaler - 60 dose INH SCH ×2 (10:00→19:21)
--- NOTE | 2019-04-29 11:29 | NUR ---
[employer]NERPHLEBOTOMY TECH SI:ACUTE CHF VS: BP 174/99, P 83, T 97.4, RR 20, SpO2 93 NC 2.0 RBC 2.83, H&H 8.4/24.4, K 3.4, BUN 53, CR 3.9 IS:ELIQUIS 2.5mg CORDARONE 200mg CATAPRES 0.1mg K-DUR 40meq ALBUTEROL 3ml HHN CARDIZEM 60mg LASIX 40mg IV 3E MED/SURG STATUS
--- NOTE | 2019-04-29 12:07 | Pulmonology Progress Note ---
Assessment/Plan Problems: (1) Renal anasarca (2) Nephrotic syndrome (3) Hypertension (4) CRF (chronic renal failure) (5) Anemia, unspecified Assessment/Plan on Lasix.,40 Q8, watch bun/creatinine, slowly rising monitor BP, better than admission Renal US noted, chronic renal disease, ? etiology dvt prophylaxis. Subjective ROS Limited/Unobtainable: No Interval Events: diuresing well Allergies: Coded Allergies: Dairy (Verified Allergy, Unknown, 04/25/19) PENICILLINS (Verified Allergy, Unknown, 04/25/19) Objective Last 24 Hour Vital Signs Date Time Temp Pulse Resp B/P (MAP) Pulse Ox O2 Delivery O2 Flow Rate FiO2 04/29/19 11:52 86 18 99 Nasal Cannula 2.0 04/29/19 11:46 87 20 97 Nasal Cannula 2.0 04/29/19 10:01 89 20 96 Nasal Cannula 2.0 04/29/19 10:01 89 20 96 Nasal Cannula 2.0 04/29/19 09:08 174/99 04/29/19 08:41 87 20 98 Nasal Cannula 2.0 04/29/19 08:26 89 20 96 Nasal Cannula 2.0 04/29/19 08:00 97.4 83 20 174/99 (124) 93 04/29/19 05:42 80 160/94 04/29/19 04:59 98.8 80 18 160/94 (116) 95 04/29/19 03:11 85 20 98 Nasal Cannula 2.0 04/29/19 03:00 86 20 96 Nasal Cannula 2.0 04/29/19 00:37 173/102 04/29/19 00:37 87 173/102 04/29/19 00:30 98.3 87 18 173/102 (125) 94 04/28/19 23:36 77 24 98 Nasal Cannula 2.0 04/28/19 23:35 77 20 98 Nasal Cannula 2.0 04/28/19 23:31 94 24 93 Nasal Cannula 2.0 04/28/19 23:25 94 20 93 Nasal Cannula 2.0 04/28/19 21:00 Nasal Cannula 3.0 04/28/19 20:00 98.6 89 18 175/97 (123) 95 04/28/19 19:30 88 20 99 Nasal Cannula 2.0 04/28/19 19:05 79 152/91 (111) 04/28/19 19:02 82 20 96 Nasal Cannula 2.0 04/28/19 18:02 190/118 04/28/19 18:02 93 190/118 04/28/19 17:40 98.6 93 20 190/118 (142) 95 04/28/19 17:15 97.9 91 20 178/98 (124) 04/28/19 16:06 98.0 86 16 169/98 (121) 95 04/28/19 15:29 86 20 99 Nasal Cannula 2.0 04/28/19 15:19 87 20 97 Nasal Cannula 2.0 04/28/19 12:46 84 158/85 Intake and Output 04/28/19 04/29/19 18:59 06:59 Intake Total 1919 ml 720 ml Output Total 950 ml 1300 ml Balance 969 ml -580 ml Intake Oral 1739 ml 720 ml Blood Product 180 ml Output Urine Total 950 ml 1300 ml # Voids 4 General Appearance: cachetic HEENT: normocephalic, atraumatic Respiratory/Chest: chest wall non-tender, lungs clear Cardiovascular: normal peripheral pulses, regular rhythm, no JVD Abdomen: soft, non tender Genitourinary: normal external genitalia Extremities: no clubbing Skin: no lesions Laboratory Tests 04/29/19 05:10: White Blood Count 9.1, Red Blood Count 2.83L, Hemoglobin 8.4L, Hematocrit 24.4L , Mean Corpuscular Volume 86, Mean Corpuscular Hemoglobin 29.7, Mean Corpuscular Hemoglobin Concent 34.4, Red Cell Distribution Width 13.9, Platelet Count 252, Mean Platelet Volume 4.8L, Neutrophils (%) (Auto) 71.8, Lymphocytes ( %) (Auto) 16.8L, Monocytes (%) (Auto) 8.3, Eosinophils (%) (Auto) 2.7, Basophils (%) (Auto) 0.4, Sodium Level 141, Potassium Level 3.4L, Chloride Level 107, Carbon Dioxide Level 21, Anion Gap 13, Blood Urea Nitrogen 53H, Creatinine 3.9H, Estimat Glomerular Filtration Rate 15.6, Glucose Level 122H, Calcium Level 7.5L Current Medications Medications (Trade) Dose Ordered Sig/Hans Route PRN Reason Start Time Stop Time Status Last Admin Dose Admin Acetaminophen (Tylenol) 650 mg Q4H PRN ORAL Fever (T>100.5 F) 04/27/19 19:00 05/25/19 22:59 Albuterol/ Ipratropium (Albuterol/ Ipratropium) 3 ml Q4HRT HHN 04/28/19 01:00 05/03/19 00:59 04/29/19 11:46 Amiodarone HCl (Cordarone) 200 mg EVERY 12 HOURS ORAL 04/28/19 21:00 05/26/19 20:59 04/29/19 09:08 Apixaban (Eliquis) 2.5 mg BID ORAL 04/28/19 09:00 05/26/19 17:59 04/29/19 09:08 Clonidine HCl (Catapres Tab) 0.1 mg Q4H PRN ORAL For SBP>170 04/28/19 16:00 05/27/19 22:29 04/29/19 09:08 Dextrose (Dextrose 50%) 25 ml Q30M PRN IV Hypoglycemia 04/27/19 19:00 05/25/19 22:59 Dextrose (Dextrose 50%) 50 ml Q30MIN PRN IV Hypoglycemia 04/27/19 19:00 05/25/19 22:59 Diltiazem HCl (Cardizem) 60 mg EVERY 6 HOURS ORAL 04/28/19 00:00 05/26/19 11:59 04/29/19 05:42 Docusate Sodium (Colace) 100 mg TWICE A DAY ORAL 04/28/19 09:00 05/26/19 17:59 04/29/19 09:08 Epoetin Milton (Epoetin Milton-EPBX(NON ESRD)) 10,000 unit THU-THU-THU SUBQ 04/27/19 21:00 05/27/19 20:59 Furosemide (Lasix) 40 mg EVERY 8 HOURS IV 04/27/19 22:00 05/26/19 05:59 04/29/19 05:42 Nicotine (Nicoderm) 1 patch Q24H TDERMAL 04/28/19 18:00 05/27/19 17:59 04/28/19 18:01 Olanzapine (ZyPREXA) 2.5 mg BEDTIME ORAL 04/28/19 21:15 05/28/19 21:14 04/28/19 21:45 Ondansetron HCl (Zofran) 4 mg Q6H PRN IVP Nausea & Vomiting 04/27/19 19:00 05/25/19 18:59 Pantoprazole (Protonix) 40 mg Q12HR ORAL 04/27/19 21:00 05/26/19 20:59 04/29/19 09:08 Polyethylene Glycol (Miralax) 17 gm DAILYPRN PRN ORAL Constipation 04/27/19 19:00 05/25/19 18:59 Salmeterol Xinafoate/ Fluticasone (Advair 100/50 Diskus) 1 puffs TWICE A DAY INH 04/28/19 21:15 05/28/19 21:14 04/29/19 10:00 Temazepam (Restoril) 15 mg HSPRN PRN ORAL Insomnia 04/27/19 21:00 05/02/19 20:59 04/27/19 21:12 Trazodone HCl (Desyrel) 25 mg BEDTIME ORAL 04/28/19 21:15 05/28/19 21:14 04/28/19 21:45 Lorenza Boyle MD Apr 29, 2019 12:07
--- NOTE | 2019-04-29 12:34 | Cardiology Report ---
APPROVED REPORT EKG Measurement Heart [id number] Sinus rhythm with 1st degree AV block Left posterior fascicular block Prolonged QT Abnormal ECG
[2019-04-29] MEDS ORDERED: NS 275ml ONE (13:09)
[2019-04-29] MEDS ORDERED: Tubing IV Secondary IV ONE (13:10)
--- NOTE | 2019-04-29 13:30 | NUR ---
NURSE NOTES: Dr. Vallejo aware of BP 181/104 mmHg, reviewed eMAR, Cardizem changed to 90 mg PO every 6 hours, see order.
--- NOTE | 2019-04-29 13:51 | Cardiac Electrophysiology PN ---
Assessment/Plan Assessment/Plan 1. Atrial fibrillation with rapid ventricular response 150s based on EKG on A 12-lead EKG from 10/26/19 at 7:11 a.m. shows sinus rhythm with first-degree AV block with left posterior fascicular block as well as inferolateral ischemia on the EKG. Increase Cardizem to 90 mg every 6 hours and amiodarone 400 daily and Eliquis 2.5 bid 2. Congestive heart failure with BNP > 48357. Echocardiogram showed EF of 55% with diastolic dysfunction. Continue Lasix 40 mg IV every 8 hours as well as Cardizem. Likely due to volume overload due to renal failure. 3. Hypertension. Blood pressure was in 200. Continue Lasix and increase Cardizem to 90 q 6. Add prn Clonidine. 4. Acute renal failure. BUN/CR 45/3.4 ? Nephrotic syndrome. FU Dr Boudreaux. May need HD 5. History of schizophrenia. Further evaluation by Psychiatry. MIKE RN and Dr Marquez Subjective Subjective Alert in NAD. On IV Lasix 40 tid.Still very swollen Objective Last 24 Hour Vital Signs Date Time Temp Pulse Resp B/P (MAP) Pulse Ox O2 Delivery O2 Flow Rate FiO2 04/29/19 12:49 90 181/104 04/29/19 11:52 86 18 99 Nasal Cannula 2.0 04/29/19 11:46 87 20 97 Nasal Cannula 2.0 04/29/19 10:01 89 20 96 Nasal Cannula 2.0 04/29/19 10:01 89 20 96 Nasal Cannula 2.0 04/29/19 09:08 174/99 04/29/19 08:41 87 20 98 Nasal Cannula 2.0 04/29/19 08:26 89 20 96 Nasal Cannula 2.0 04/29/19 08:00 97.4 83 20 174/99 (124) 93 04/29/19 05:42 80 160/94 04/29/19 04:59 98.8 80 18 160/94 (116) 95 04/29/19 03:11 85 20 98 Nasal Cannula 2.0 04/29/19 03:00 86 20 96 Nasal Cannula 2.0 04/29/19 00:37 173/102 04/29/19 00:37 87 173/102 04/29/19 00:30 98.3 87 18 173/102 (125) 94 04/28/19 23:36 77 24 98 Nasal Cannula 2.0 04/28/19 23:35 77 20 98 Nasal Cannula 2.0 04/28/19 23:31 94 24 93 Nasal Cannula 2.0 04/28/19 23:25 94 20 93 Nasal Cannula 2.0 04/28/19 21:00 Nasal Cannula 3.0 04/28/19 20:00 98.6 89 18 175/97 (123) 04/28/19 19:30 88 20 99 Nasal Cannula 2.0 04/28/19 19:05 79 152/91 (111) 04/28/19 19:02 82 20 96 Nasal Cannula 2.0 04/28/19 18:02 190/118 04/28/19 18:02 93 190/118 04/28/19 17:40 98.6 93 20 190/118 (142) 04/28/19 17:15 97.9 91 20 178/98 (124) 04/28/19 16:06 98.0 86 16 169/98 (121) 04/28/19 15:29 86 20 99 Nasal Cannula 2.0 04/28/19 15:19 87 20 97 Nasal Cannula 2.0 28 Intake and Output 04/28/19 04/29/19 18:59 06:59 Intake Total 1919 ml 720 ml Output Total 950 ml 1300 ml Balance 969 ml -580 ml Intake Oral 1739 ml 720 ml Blood Product 180 ml Output Urine Total 950 ml 1300 ml # Voids 4 Laboratory Tests Test 04/29/19 05:10 White Blood Count 9.1 K/UL (4.8-10.8) Red Blood Count 2.83 M/UL (4.70-6.10) L Hemoglobin 8.4 G/DL (14.2-18.0) L Hematocrit 24.4 % (42.0-52.0) L Mean Corpuscular Volume 86 FL (80-99) Mean Corpuscular Hemoglobin 29.7 PG (27.0-31.0) Mean Corpuscular Hemoglobin Concent 34.4 G/DL (32.0-36.0) Red Cell Distribution Width 13.9 % (11.6-14.8) Platelet Count 252 K/UL (150-450) Mean Platelet Volume 4.8 FL (6.5-10.1) L Neutrophils (%) (Auto) 71.8 % (45.0-75.0) Lymphocytes (%) (Auto) 16.8 % (20.0-45.0) L Monocytes (%) (Auto) 8.3 % (1.0-10.0) Eosinophils (%) (Auto) 2.7 % (0.0-3.0) Basophils (%) (Auto) 0.4 % (0.0-2.0) Sodium Level 141 MMOL/L (136-145) Potassium Level 3.4 MMOL/L (3.5-5.1) L Chloride Level 107 MMOL/L (98-107) Carbon Dioxide Level 21 MMOL/L (21-32) Anion Gap 13 mmol/L (5-15) Blood Urea Nitrogen 53 mg/dL (7-18) H Creatinine 3.9 MG/DL (0.55-1.30) H Estimat Glomerular Filtration Rate 15.6 mL/min (>60) Glucose Level 122 MG/DL (74-106) H Calcium Level 7.5 MG/DL (8.5-10.1) L Objective HEAD AND NECK: No JVD or carotid bruit. LUNGS: Have decreased breath sounds. CARDIOVASCULAR: Regular S1 and S2 with no gallop or murmur. ABDOMEN: Soft. EXTREMITIES: 2+ pitting edema and scrotal edema. Davy Huitron MD Apr 29, 2019 13:51
--- NOTE | 2019-04-29 13:52 | Nephrology Progress Note ---
Assessment/Plan Problem List: (1) CRF (chronic renal failure) (2) Hypertension (3) Anemia, unspecified (4) Acute exacerbation of CHF (congestive heart failure) (5) Hypercholesteremia Assessment: likely due to NS Assessment Chronic renal Failure- Sever HypoAlbuminemia, h/o Nephrotic Syndrome , Etiology??? CHF HTN Anemia Schizophrenia Plan Iron studies, noted EPO SQ 24 H Urine protein and CrCl is 8 Keep BP in check 2D echo 55% EjFx MAVERICK Kidney neg for obstruction per orders Kidney Bx has diagnostic indication Subjective ROS Limited/Unobtainable: No Constitutional: Reports: malaise, weakness Objective Objective Last 24 Hour Vital Signs Date Time Temp Pulse Resp B/P (MAP) Pulse Ox O2 Delivery O2 Flow Rate FiO2 04/29/19 12:49 90 181/104 04/29/19 11:52 86 18 99 Nasal Cannula 2.0 04/29/19 11:46 87 20 97 Nasal Cannula 2.0 04/29/19 10:01 89 20 96 Nasal Cannula 2.0 04/29/19 10:01 89 20 96 Nasal Cannula 2.0 04/29/19 09:08 174/99 04/29/19 08:41 87 20 98 Nasal Cannula 2.0 04/29/19 08:26 89 20 96 Nasal Cannula 2.0 04/29/19 08:00 97.4 83 20 174/99 (124) 93 04/29/19 05:42 80 160/94 04/29/19 04:59 98.8 80 18 160/94 (116) 95 04/29/19 03:11 85 20 98 Nasal Cannula 2.0 04/29/19 03:00 86 20 96 Nasal Cannula 2.0 04/29/19 00:37 173/102 04/29/19 00:37 87 173/102 04/29/19 00:30 98.3 87 18 173/102 (125) 94 04/28/19 23:36 77 24 98 Nasal Cannula 2.0 04/28/19 23:35 77 20 98 Nasal Cannula 2.0 04/28/19 23:31 94 24 93 Nasal Cannula 2.0 04/28/19 23:25 94 20 93 Nasal Cannula 2.0 04/28/19 21:00 Nasal Cannula 3.0 04/28/19 20:00 98.6 89 18 175/97 (123) 04/28/19 19:30 88 20 99 Nasal Cannula 2.0 04/28/19 19:05 79 152/91 (111) 04/28/19 19:02 82 20 96 Nasal Cannula 2.0 04/28/19 18:02 190/118 04/28/19 18:02 93 190/118 04/28/19 17:40 98.6 93 20 190/118 (142) 04/28/19 17:15 97.9 91 20 178/98 (124) 04/28/19 16:06 98.0 86 16 169/98 (121) 04/28/19 15:29 86 20 99 Nasal Cannula 2.0 04/28/19 15:19 87 20 97 Nasal Cannula 2.0 Intake and Output 04/28/19 04/29/19 18:59 06:59 Intake Total 1919 ml 720 ml Output Total 950 ml 1300 ml Balance 969 ml -580 ml Intake Oral 1739 ml 720 ml Blood Product 180 ml Output Urine Total 950 ml 1300 ml # Voids 4 Laboratory Tests 04/29/19 05:10: White Blood Count 9.1, Red Blood Count 2.83L, Hemoglobin 8.4L, Hematocrit 24.4L , Mean Corpuscular Volume 86, Mean Corpuscular Hemoglobin 29.7, Mean Corpuscular Hemoglobin Concent 34.4, Red Cell Distribution Width 13.9, Platelet Count 252, Mean Platelet Volume 4.8L, Neutrophils (%) (Auto) 71.8, Lymphocytes ( %) (Auto) 16.8L, Monocytes (%) (Auto) 8.3, Eosinophils (%) (Auto) 2.7, Basophils (%) (Auto) 0.4, Sodium Level 141, Potassium Level 3.4L, Chloride Level 107, Carbon Dioxide Level 21, Anion Gap 13, Blood Urea Nitrogen 53H, Creatinine 3.9H, Estimat Glomerular Filtration Rate 15.6, Glucose Level 122H, Calcium Level 7.5L Height (Feet): 6 Height (Inches): 0.00 Weight (Pounds): 203 General Appearance: no apparent distress Respiratory/Chest: decreased breath sounds Abdomen: distended Phani Boudreaux MD Apr 29, 2019 13:52
--- NOTE | 2019-04-29 15:08 | NUR ---
RD ASSESSMENT & RECOMMENDATIONS SEE CARE ACTIVITY FOR COMPLETE ASSESSMENT DAILY ESTIMATED NEEDS: Needs based on CHF, CKD/ 84.8kg abw 25-30 kcals/kg 0026-3285 total kcals 0.8-1.1 g protein/kg 68-93 g total protein 20-22 mL/kg 9846-4785 total fluid mLs NUTRITION DIAGNOSIS: Altered nutrition related lab values R/T renal dysfunction, CHF, h/o DM as evidenced by elev creat (3.9), elev BNP (31648), low K (3.4), A1C of 6.2. CURRENT DIET:CARDIAC, CCHO MED PO DIET RECOMMENDATIONS: Maintain Cardiac, CCHO Med ADDITIONAL RECOMMENDATIONS: * Daily standing wt monitoring * Monitor lytes daily w/ lasix, replete as needed * Monitor BGs closely, need for hypoglycemics * Monitor renal fxn closely
--- NOTE | 2019-04-29 16:35 | NUR ---
NURSE NOTES: Patient c/o dry mouth and dry throat, provided ice chips, Dr. Boyle notified, orders received for lozenges and chloraseptic spray. Notified patient of updated orders.
[2019-04-29] MEDS: dilTIAZem HCl 30mg tab ORAL SCH ×2 (18:10→23:53)
[2019-04-29] MEDS ORDERED: Chloraseptic Spray 20mL Bottle ORAL PRN (18:15)
--- NOTE | 2019-04-29 19:40 | NUR ---
HAND-OFF: Report given to Alicia VELA.
--- NOTE | 2019-04-29 19:40 | NUR ---
NURSE NOTES:Patient received from Suzy Camacho Patient A/A/O X4. setting high peralta position Patient denies any pain at this time . no s/s of distress noted . RFA g#22 H/L patent and intact . Patient on O2 3 L via n/c in placed . patient voiding via urinals . Safety / fall Implemented . call light within reach . bed in low position at all times . will continue to monitor.
[2019-04-29] MEDS: TraZODone HCl 25 mg tablet ORAL SCH (21:18)
[2019-04-29] MEDS: Epoetin Alfa-EPBX (NON ESRD)10,000 unit/ml vial SUBQ SCH (21:18)
[2019-04-29] MEDS: OLANZapine 2.5mg tab ORAL SCH (21:18)
[2019-04-30] VITALS (7 sets, daily range): BP systolic 123–160; BP diastolic 80–92
[2019-04-30] MEDS: Albuterol/Ipratropium 3ml neb HHN SCH ×6 (02:52→22:48)
[2019-04-30] MEDS: dilTIAZem HCl 30mg tab ORAL SCH ×4 (06:35→23:07)
[2019-04-30 06:46] LABS: BASOPHILS % (AUTO) 0.7 % (0.0-2.0); EOSINOPHILS % (AUTO) 6.7 % (0.0-3.0); HEMOGLOBIN 9.5 G/DL (14.2-18.0); LYMPHOCYTES % (AUTO) 19.5 % (20.0-45.0); MEAN CORPUSCULAR VOLUME 90 FL (80-99); MONOCYTES % (AUTO) 7.8 % (1.0-10.0); NEUTROPHILS % (AUTO) 65.3 % (45.0-75.0); PLATELET COUNT 336 K/UL (150-450); RED BLOOD COUNT 3.23 M/UL (4.70-6.10); RED CELL DISTRIBUTION WIDTH 14.2 % (11.6-14.8); WHITE BLOOD COUNT 9.2 K/UL (4.8-10.8)
--- NOTE | 2019-04-30 07:15 | NUR ---
NURSE NOTES:Albumisol 100 ml iv once endorsed to Estelle Camacho
--- NOTE | 2019-04-30 07:16 | NUR ---
HAND-OFF: Report given to perry Camacho
--- NOTE | 2019-04-30 07:16 | Pulmonology Progress Note ---
Assessment/Plan Problems: (1) Renal anasarca (2) Nephrotic syndrome (3) Hypertension (4) CRF (chronic renal failure) (5) Anemia, unspecified Assessment/Plan add 25% albumin daily on Lasix.,40 Q8, watch bun/creatinine, slowly rising monitor BP, better than admission Nephrotic syndrom most likely secondary to hypertensive nephropathy dvt prophylaxis. Subjective ROS Limited/Unobtainable: No Constitutional: Reports: no symptoms HEENT: Repors: no symptoms Respiratory: Reports: no symptoms Allergies: Coded Allergies: Dairy (Verified Allergy, Unknown, 04/25/19) PENICILLINS (Verified Allergy, Unknown, 04/25/19) Objective Last 24 Hour Vital Signs Date Time Temp Pulse Resp B/P (MAP) Pulse Ox O2 Delivery O2 Flow Rate FiO2 04/30/19 06:35 90 123/88 04/30/19 04:00 98.0 90 123/88 (100) 98 04/30/19 03:01 77 18 99 Nasal Cannula 2.0 04/30/19 02:51 80 20 96 Nasal Cannula 2.0 04/29/19 23:54 180/92 04/29/19 23:53 86 180/92 04/29/19 23:46 98.5 86 180/92 (121) 98 04/29/19 23:09 80 18 98 Nasal Cannula 2.0 04/29/19 23:00 78 18 95 Nasal Cannula 2.0 04/29/19 21:00 Nasal Cannula 3.0 04/29/19 20:01 98.3 85 158/93 (114) 97 04/29/19 19:28 75 18 97 Nasal Cannula 2.0 04/29/19 19:27 78 18 99 Nasal Cannula 2.0 04/29/19 19:26 98 Nasal Cannula 2.0 04/29/19 19:25 75 18 98 Nasal Cannula 2.0 04/29/19 19:24 75 18 98 Nasal Cannula 2.0 04/29/19 19:16 75 18 98 Nasal Cannula 2.0 04/29/19 18:10 85 167/96 (119) 04/29/19 18:10 85 167/96 04/29/19 16:30 85 162/93 (116) 04/29/19 16:29 162/93 04/29/19 16:00 97.9 78 20 157/88 (111) 95 04/29/19 14:48 84 18 99 Nasal Cannula 2.0 28 04/29/19 14:39 89 20 97 Nasal Cannula 2.0 28 04/29/19 13:49 181/104 04/29/19 12:50 90 181/104 (129) 04/29/19 12:49 90 181/104 04/29/19 12:00 98.1 75 18 146/92 (110) 94 04/29/19 11:52 86 18 99 Nasal Cannula 2.0 04/29/19 11:46 87 20 97 Nasal Cannula 2.0 04/29/19 10:01 89 20 96 Nasal Cannula 2.0 04/29/19 10:01 89 20 96 Nasal Cannula 2.0 04/29/19 09:08 174/99 04/29/19 09:00 Nasal Cannula 3.0 04/29/19 08:41 87 20 98 Nasal Cannula 2.0 04/29/19 08:26 89 20 96 Nasal Cannula 2.0 04/29/19 08:00 97.4 83 20 174/99 (124) 93 Intake and Output 04/29/19 04/30/19 19:00 07:00 Intake Total 805 ml 1170 ml Output Total 1350 ml 1050 ml Balance -545 ml 120 ml Intake Oral 805 ml 1170 ml Output Urine Total 1350 ml 1050 ml # Voids 4 4 General Appearance: WD/WN HEENT: normocephalic, anicteric Respiratory/Chest: chest wall non-tender, normal breath sounds Cardiovascular: no JVD Abdomen: soft, non tender, no organomegaly Extremities: other - massive edema unchagned Laboratory Tests 04/30/19 04:45: White Blood Count 9.2, Red Blood Count 3.23L, Hemoglobin 9.5L, Hematocrit 29.0L , Mean Corpuscular Volume 90, Mean Corpuscular Hemoglobin 29.4, Mean Corpuscular Hemoglobin Concent 32.7, Red Cell Distribution Width 14.2, Platelet Count 336, Mean Platelet Volume 4.7L, Neutrophils (%) (Auto) 65.3, Lymphocytes ( %) (Auto) 19.5L, Monocytes (%) (Auto) 7.8, Eosinophils (%) (Auto) 6.7H, Basophils (%) (Auto) 0.7, Sodium Level [Pending], Potassium Level [Pending], Chloride Level [Pending], Carbon Dioxide Level [Pending], Blood Urea Nitrogen [ Pending], Creatinine [Pending], Estimat Glomerular Filtration Rate [Pending], Glucose Level [Pending], Calcium Level [Pending] Current Medications Medications (Trade) Dose Ordered Sig/Hans Route PRN Reason Start Time Stop Time Status Last Admin Dose Admin Acetaminophen (Tylenol) 650 mg Q4H PRN ORAL Fever (T>100.5 F) 04/27/19 19:00 05/25/19 22:59 Albuterol/ Ipratropium (Albuterol/ Ipratropium) 3 ml Q4HRT HHN 04/28/19 01:00 05/03/19 00:59 04/30/19 02:52 Amiodarone HCl (Cordarone) 200 mg EVERY 12 HOURS ORAL 04/28/19 21:00 05/26/19 20:59 04/29/19 21:18 Apixaban (Eliquis) 2.5 mg BID ORAL 04/28/19 09:00 05/26/19 17:59 04/29/19 18:08 Cetylpyridinium Chloride (Cepacol) 1 lozg Q2H PRN MARIAMA DRY THROAT 04/29/19 18:15 05/29/19 18:14 Clonidine HCl (Catapres TTS-2) 1 patch QWEEK TDERMAL 04/29/19 15:00 05/29/19 14:59 04/29/19 16:29 Clonidine HCl (Catapres Tab) 0.1 mg Q4H PRN ORAL For SBP>170 04/28/19 16:00 05/27/19 22:29 04/29/19 23:54 Dextrose (Dextrose 50%) 25 ml Q30M PRN IV Hypoglycemia 04/27/19 19:00 05/25/19 22:59 Dextrose (Dextrose 50%) 50 ml Q30MIN PRN IV Hypoglycemia 04/27/19 19:00 05/25/19 22:59 Diltiazem HCl (Cardizem) 90 mg EVERY 6 HOURS ORAL 04/29/19 18:00 05/26/19 11:59 04/30/19 06:35 Epoetin Milton (Epoetin Milton-EPBX(NON ESRD)) 10,000 unit THU-THU-THU SUBQ 04/27/19 21:00 05/27/19 20:59 04/29/19 21:18 Furosemide (Lasix) 40 mg EVERY 8 HOURS IV 04/27/19 22:00 05/26/19 05:59 04/30/19 06:34 Nicotine (Nicoderm) 1 patch Q24H TDERMAL 04/28/19 18:00 05/27/19 17:59 04/29/19 18:08 Olanzapine (ZyPREXA) 2.5 mg BEDTIME ORAL 04/28/19 21:15 05/28/19 21:14 04/29/19 21:18 Ondansetron HCl (Zofran) 4 mg Q6H PRN IVP Nausea & Vomiting 04/27/19 19:00 05/25/19 18:59 Phenol/Menthol (Chloraseptic) 1 spray Q3H PRN ORAL DRY THROAT 04/29/19 18:15 05/29/19 18:14 04/29/19 21:53 Salmeterol Xinafoate/ Fluticasone (Advair 100/50 Diskus) 1 puffs TWICE A DAY INH 04/28/19 21:15 05/28/19 21:14 04/29/19 19:21 Temazepam (Restoril) 15 mg HSPRN PRN ORAL Insomnia 04/27/19 21:00 05/02/19 20:59 04/27/19 21:12 Trazodone HCl (Desyrel) 25 mg BEDTIME ORAL 04/28/19 21:15 05/28/19 21:14 04/29/19 21:18 Lorenza Boyle MD Apr 30, 2019 07:16
[2019-04-30 07:30] LABS: ANION GAP 14 mmol/L (5-15); BLOOD UREA NITROGEN 53 mg/dL (7-18); CALCIUM 7.9 MG/DL (8.5-10.1); CARBON DIOXIDE 21 MMOL/L (21-32); CHLORIDE 102 MMOL/L (98-107); POTASSIUM 3.4 MMOL/L (3.5-5.1); SODIUM 136 MMOL/L (136-145)
--- NOTE | 2019-04-30 07:37 | NUR ---
NURSE NOTES: Pt awake, A/O x 4, calm. Denies pain, pt on 2L O2 Via NC. no SOB. +2 edema BLE. call light within reach. bed alarm on. will continue to monitor. Addendum: 04/30/19 at 1739 by Estelle Grissom RN Swollen scrotum/+2 edema BUE/BLE, will continue to monitor.
[2019-04-30] MEDS: Amiodarone 200mg tab ORAL SCH ×2 (08:50→20:44)
[2019-04-30] MEDS: Eliquis 2.5mg tablet ORAL SCH ×2 (08:51→17:15)
--- NOTE | 2019-04-30 09:43 | Cardiology Progress Note ---
Assessment/Plan Status: stable Assessment/Plan Assessment/Plan Assessment/Plan 1. Atrial fibrillation with rapid ventricular response 150s based on EKG on A 12-lead EKG from 10/26/19 at 7:11 a.m. shows sinus rhythm with first-degree AV block with left posterior fascicular block as well as inferolateral ischemia on the EKG. Increase Cardizem to 90 mg every 6 hours and amiodarone 400 daily and Eliquis 2.5 bid 2. Congestive heart failure with BNP > 06745. Echocardiogram showed EF of 55% with diastolic dysfunction. Continue Lasix 40 mg IV every 8 hours as well as Cardizem. Likely due to volume overload due to renal failure. 3. Hypertension. Blood pressure was in 200. Continue Lasix and increase Cardizem to 90 q 6. Add prn Clonidine. 4. Acute renal failure. BUN/CR 45/3.4 ? Nephrotic syndrome. FU Dr Boudreaux. May need HD 5. History of schizophrenia. Further evaluation by Psychiatry. Subjective Cardiovascular: Reports: no symptoms Respiratory: Reports: no symptoms Gastrointestinal/Abdominal: Reports: no symptoms Genitourinary: Reports: no symptoms Subjective Coverage for [place] no acute events, vitals stable, no distress Objective Last 24 Hour Vital Signs Date Time Temp Pulse Resp B/P (MAP) Pulse Ox O2 Delivery O2 Flow Rate FiO2 04/30/19 09:25 98.3 18 145/85 (105) 98 04/30/19 09:03 98.1 70 20 144/80 (101) 99 04/30/19 08:00 97.7 74 152/83 (106) 98 04/30/19 07:43 Nasal Cannula 04/30/19 07:43 Nasal Cannula 04/30/19 07:42 98 Nasal Cannula 2.0 04/30/19 06:35 90 123/88 04/30/19 04:00 98.0 90 123/88 (100) 98 04/30/19 03:01 77 18 99 Nasal Cannula 2.0 04/30/19 02:51 80 20 96 Nasal Cannula 2.0 04/29/19 23:54 180/92 04/29/19 23:53 86 180/92 04/29/19 23:46 98.5 86 180/92 (121) 98 04/29/19 23:09 80 18 98 Nasal Cannula 2.0 04/29/19 23:00 78 18 95 Nasal Cannula 2.0 04/29/19 21:00 Nasal Cannula 3.0 04/29/19 20:01 98.3 85 158/93 (114) 97 04/29/19 19:28 75 18 97 Nasal Cannula 2.0 04/29/19 19:27 78 18 99 Nasal Cannula 2.0 04/29/19 19:26 98 Nasal Cannula 2.0 04/29/19 19:25 75 18 98 Nasal Cannula 2.0 04/29/19 19:24 75 18 98 Nasal Cannula 2.0 04/29/19 19:16 75 18 98 Nasal Cannula 2.0 04/29/19 18:10 85 167/96 (119) 04/29/19 18:10 85 167/96 04/29/19 16:30 85 162/93 (116) 04/29/19 16:29 162/93 04/29/19 16:00 97.9 78 20 157/88 (111) 95 04/29/19 14:48 84 18 99 Nasal Cannula 2.0 04/29/19 14:39 89 20 97 Nasal Cannula 2.0 04/29/19 13:49 181/104 04/29/19 12:50 90 181/104 (129) 04/29/19 12:49 90 181/104 04/29/19 12:00 98.1 75 18 146/92 (110) 94 04/29/19 11:52 86 18 99 Nasal Cannula 2.0 04/29/19 11:46 87 20 97 Nasal Cannula 2.0 04/29/19 10:01 89 20 96 Nasal Cannula 2.0 04/29/19 10:01 89 20 96 Nasal Cannula 2.0 General Appearance: no apparent distress, alert EENT: PERRL/EOMI, normal ENT inspection Neck: non-tender, normal alignment, supple, normal inspection, no JVD Rhythm: NSR Cardiovascular: normal peripheral pulses, normal rate, regular rhythm Respiratory/Chest: chest wall non-tender, lungs clear Abdomen: normal bowel sounds, non tender, soft, no organomegaly Extremities: normal range of motion, non-tender, normal inspection, no calf tenderness, no swelling 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, no motor/sensory deficits Intake and Output 6/28/19 6/29/19 19:00 07:00 Intake Total 805 ml 1170 ml Output Total 1350 ml 1050 ml Balance -545 ml 120 ml Intake Oral 805 ml 1170 ml Output Urine Total 1350 ml 1050 ml # Voids 4 4 Laboratory Tests Test 04/30/19 04:45 White Blood Count 9.2 K/UL (4.8-10.8) Red Blood Count 3.23 M/UL (4.70-6.10) L Hemoglobin 9.5 G/DL (14.2-18.0) L Hematocrit 29.0 % (42.0-52.0) L Mean Corpuscular Volume 90 FL (80-99) Mean Corpuscular Hemoglobin 29.4 PG (27.0-31.0) Mean Corpuscular Hemoglobin Concent 32.7 G/DL (32.0-36.0) Red Cell Distribution Width 14.2 % (11.6-14.8) Platelet Count 336 K/UL (150-450) Mean Platelet Volume 4.7 FL (6.5-10.1) L Neutrophils (%) (Auto) 65.3 % (45.0-75.0) Lymphocytes (%) (Auto) 19.5 % (20.0-45.0) L Monocytes (%) (Auto) 7.8 % (1.0-10.0) Eosinophils (%) (Auto) 6.7 % (0.0-3.0) H Basophils (%) (Auto) 0.7 % (0.0-2.0) Sodium Level 136 MMOL/L (136-145) Potassium Level 3.4 MMOL/L (3.5-5.1) L Chloride Level 102 MMOL/L (98-107) Carbon Dioxide Level 21 MMOL/L (21-32) Anion Gap 14 mmol/L (5-15) Blood Urea Nitrogen 53 mg/dL (7-18) H Creatinine 4.0 MG/DL (0.55-1.30) H Estimat Glomerular Filtration Rate 15.2 mL/min (>60) Glucose Level 126 MG/DL (74-106) H Uric Acid Pending Calcium Level 7.9 MG/DL (8.5-10.1) L Phosphorus Level Pending Magnesium Level Pending Total Bilirubin Pending Direct Bilirubin Pending Aspartate Amino Transf (AST/SGOT) Pending Alanine Aminotransferase (ALT/SGPT) Pending Alkaline Phosphatase Pending Total Protein Pending Albumin Pending Otto Enamorado MD Apr 30, 2019 09:43
[2019-04-30 09:56] LABS: ALANINE AMINOTRANSFERASE 20 U/L (12-78); ALBUMIN 1.8 G/DL (3.4-5.0); ALKALINE PHOSPHATASE 92 U/L (46-116); ASPARTATE AMINO TRANSFERASE 20 U/L (15-37); BILIRUBIN,DIRECT < 0.1 MG/DL (0.0-0.3); BILIRUBIN,TOTAL 0.3 MG/DL (0.2-1.0); PHOSPHORUS 4.5 MG/DL (2.5-4.9)
--- NOTE | 2019-04-30 10:04 | General Progress Note ---
Assessment/Plan Problem List: (1) Acute exacerbation of CHF (congestive heart failure) ICD Codes: I50.9 - Heart failure, unspecified SNOMED: 951987495, [id number] Qualifiers: Qualified Codes: I50.9 - Heart failure, unspecified (2) Hypertension ICD Codes: I10 - Essential (primary) hypertension SNOMED: 09487797, [id number] Qualifiers: Qualified Codes: I10 - Essential (primary) hypertension (3) Anemia, unspecified ICD Codes: D64.9 - Anemia, unspecified SNOMED: 078676262 Qualifiers: Qualified Codes: D64.9 - Anemia, unspecified (4) Renal anasarca ICD Codes: N04.9 - Nephrotic syndrome with unspecified morphologic changes SNOMED: 25316693728665 Status: stable, progressing Assessment/Plan: o2 pulm tx cardio f/u pt diet cbc bmp am dc plan snf Subjective Allergies: Coded Allergies: Dairy (Verified Allergy, Unknown, 04/25/19) PENICILLINS (Verified Allergy, Unknown, 04/25/19) All Systems: reviewed and negative except above Subjective o2nc sleepy Objective Last 24 Hour Vital Signs Date Time Temp Pulse Resp B/P (MAP) Pulse Ox O2 Delivery O2 Flow Rate FiO2 04/30/19 09:25 98.3 18 145/85 (105) 98 04/30/19 09:03 98.1 70 20 144/80 (101) 99 04/30/19 09:00 Nasal Cannula 2.0 04/30/19 08:00 97.7 74 152/83 (106) 98 04/30/19 07:43 Nasal Cannula 04/30/19 07:43 Nasal Cannula 04/30/19 07:42 98 Nasal Cannula 2.0 04/30/19 06:35 90 123/88 04/30/19 04:00 98.0 90 123/88 (100) 98 04/30/19 03:01 77 18 99 Nasal Cannula 2.0 04/30/19 02:51 80 20 96 Nasal Cannula 2.0 04/29/19 23:54 180/92 04/29/19 23:53 86 180/92 04/29/19 23:46 98.5 86 180/92 (121) 98 04/29/19 23:09 80 18 98 Nasal Cannula 2.0 04/29/19 23:00 78 18 95 Nasal Cannula 2.0 04/29/19 21:00 Nasal Cannula 3.0 04/29/19 20:01 98.3 85 158/93 (114) 97 04/29/19 19:28 75 18 97 Nasal Cannula 2.0 04/29/19 19:27 78 18 99 Nasal Cannula 2.0 04/29/19 19:26 98 Nasal Cannula 2.0 04/29/19 19:25 75 18 98 Nasal Cannula 2.0 04/29/19 19:24 75 18 98 Nasal Cannula 2.0 04/29/19 19:16 75 18 98 Nasal Cannula 2.0 04/29/19 18:10 85 167/96 (119) 04/29/19 18:10 85 167/96 04/29/19 16:30 85 162/93 (116) 04/29/19 16:29 162/93 04/29/19 16:00 97.9 78 20 157/88 (111) 95 04/29/19 14:48 84 18 99 Nasal Cannula 2.0 04/29/19 14:39 89 20 97 Nasal Cannula 2.0 04/29/19 13:49 181/104 04/29/19 12:50 90 181/104 (129) 04/29/19 12:49 90 181/104 04/29/19 12:00 98.1 75 18 146/92 (110) 94 04/29/19 11:52 86 18 99 Nasal Cannula 2.0 04/29/19 11:46 87 20 97 Nasal Cannula 2.0 Intake and Output 04/29/19 04/30/19 19:00 07:00 Intake Total 805 ml 1170 ml Output Total 1350 ml 1050 ml Balance -545 ml 120 ml Intake Oral 805 ml 1170 ml Output Urine Total 1350 ml 1050 ml # Voids 4 4 Laboratory Tests 04/30/19 04:45: White Blood Count 9.2, Red Blood Count 3.23L, Hemoglobin 9.5L, Hematocrit 29.0L , Mean Corpuscular Volume 90, Mean Corpuscular Hemoglobin 29.4, Mean Corpuscular Hemoglobin Concent 32.7, Red Cell Distribution Width 14.2, Platelet Count 336, Mean Platelet Volume 4.7L, Neutrophils (%) (Auto) 65.3, Lymphocytes ( %) (Auto) 19.5L, Monocytes (%) (Auto) 7.8, Eosinophils (%) (Auto) 6.7H, Basophils (%) (Auto) 0.7, Sodium Level 136, Potassium Level 3.4L, Chloride Level 102, Carbon Dioxide Level 21, Anion Gap 14, Blood Urea Nitrogen 53H, Creatinine 4.0H, Estimat Glomerular Filtration Rate 15.2, Glucose Level 126H, Uric Acid 8.9H, Calcium Level 7.9L, Phosphorus Level 4.5, Magnesium Level 1.7L, Total Bilirubin 0.3, Direct Bilirubin < 0.1, Aspartate Amino Transf (AST/SGOT) 20, Alanine Aminotransferase (ALT/SGPT) 20, Alkaline Phosphatase 92, Total Protein 5.7L, Albumin 1.8L Height (Feet): 6 Height (Inches): 0.00 Weight (Pounds): 203 General Appearance: lethargic EENT: normal ENT inspection Neck: normal alignment Cardiovascular: normal peripheral pulses, normal rate, regular rhythm Respiratory/Chest: chest wall non-tender, lungs clear, normal breath sounds Abdomen: normal bowel sounds, non tender, soft Extremities: normal inspection Edema: no edema noted Arm (L), no edema noted Arm (R), no edema noted Leg (L), no edema noted Leg (R), no edema noted Pedal (L), no edema noted Pedal (R), no edema noted Generalized Neurologic: motor weakness Skin: normal pigmentation, warm/dry Rick Marquez DO Apr 30, 2019 10:04
[2019-04-30] MEDS: Wixela 100/50 Inhaler - 60 dose INH SCH ×2 (10:29→17:17)
--- NOTE | 2019-04-30 10:45 | Nephrology Progress Note ---
Assessment/Plan Problem List: (1) CRF (chronic renal failure) (2) Hypertension (3) Anemia, unspecified (4) Acute exacerbation of CHF (congestive heart failure) (5) Hypercholesteremia Assessment: likely due to NS Assessment Chronic renal Failure- Sever HypoAlbuminemia, h/o Nephrotic Syndrome , Etiology??? CHF HTN Anemia Schizophrenia Plan stop Lasix patient refuses HD Iron studies, noted EPO SQ 24 H Urine protein and CrCl is 8 Keep BP in check 2D echo 55% EjFx MAVERICK Kidney neg for obstruction per orders Kidney Bx has diagnostic indication Subjective ROS Limited/Unobtainable: No Constitutional: Reports: malaise Objective Objective Last 24 Hour Vital Signs Date Time Temp Pulse Resp B/P (MAP) Pulse Ox O2 Delivery O2 Flow Rate FiO2 04/30/19 10:30 84 16 94 Nasal Cannula 2.0 04/30/19 10:30 83 18 94 Nasal Cannula 2.0 04/30/19 10:29 83 16 94 Nasal Cannula 2.0 04/30/19 09:25 98.3 18 145/85 (105) 98 04/30/19 09:03 98.1 70 20 144/80 (101) 99 04/30/19 09:00 Nasal Cannula 2.0 04/30/19 08:00 97.7 74 152/83 (106) 98 04/30/19 07:43 Nasal Cannula 04/30/19 07:43 Nasal Cannula 04/30/19 07:42 98 Nasal Cannula 2.0 04/30/19 06:35 90 123/88 04/30/19 04:00 98.0 90 123/88 (100) 98 04/30/19 03:01 77 18 99 Nasal Cannula 2.0 04/30/19 02:51 80 20 96 Nasal Cannula 2.0 04/29/19 23:54 180/92 04/29/19 23:53 86 180/92 04/29/19 23:46 98.5 86 180/92 (121) 98 04/29/19 23:09 80 18 98 Nasal Cannula 2.0 04/29/19 23:00 78 18 95 Nasal Cannula 2.0 04/29/19 21:00 Nasal Cannula 3.0 04/29/19 20:01 98.3 85 158/93 (114) 97 04/29/19 19:28 75 18 97 Nasal Cannula 2.0 04/29/19 19:27 78 18 99 Nasal Cannula 2.0 04/29/19 19:26 98 Nasal Cannula 2.0 04/29/19 19:25 75 18 98 Nasal Cannula 2.0 04/29/19 19:24 75 18 98 Nasal Cannula 2.0 04/29/19 19:16 75 18 98 Nasal Cannula 2.0 04/29/19 18:10 85 167/96 (119) 04/29/19 18:10 85 167/96 04/29/19 16:30 85 162/93 (116) 04/29/19 16:29 162/93 04/29/19 16:00 97.9 78 20 157/88 (111) 95 04/29/19 14:48 84 18 99 Nasal Cannula 2.0 04/29/19 14:39 89 20 97 Nasal Cannula 2.0 04/29/19 13:49 181/104 04/29/19 12:50 90 181/104 (129) 04/29/19 12:49 90 181/104 04/29/19 12:00 98.1 75 18 146/92 (110) 94 04/29/19 11:52 86 18 99 Nasal Cannula 2.0 04/29/19 11:46 87 20 97 Nasal Cannula 2.0 Intake and Output 04/29/19 04/30/19 19:00 07:00 Intake Total 805 ml 1170 ml Output Total 1350 ml 1050 ml Balance -545 ml 120 ml Intake Oral 805 ml 1170 ml Output Urine Total 1350 ml 1050 ml # Voids 4 4 Laboratory Tests 04/30/19 04:45: White Blood Count 9.2, Red Blood Count 3.23L, Hemoglobin 9.5L, Hematocrit 29.0L , Mean Corpuscular Volume 90, Mean Corpuscular Hemoglobin 29.4, Mean Corpuscular Hemoglobin Concent 32.7, Red Cell Distribution Width 14.2, Platelet Count 336, Mean Platelet Volume 4.7L, Neutrophils (%) (Auto) 65.3, Lymphocytes ( %) (Auto) 19.5L, Monocytes (%) (Auto) 7.8, Eosinophils (%) (Auto) 6.7H, Basophils (%) (Auto) 0.7, Sodium Level 136, Potassium Level 3.4L, Chloride Level 102, Carbon Dioxide Level 21, Anion Gap 14, Blood Urea Nitrogen 53H, Creatinine 4.0H, Estimat Glomerular Filtration Rate 15.2, Glucose Level 126H, Uric Acid 8.9H, Calcium Level 7.9L, Phosphorus Level 4.5, Magnesium Level 1.7L, Total Bilirubin 0.3, Direct Bilirubin < 0.1, Aspartate Amino Transf (AST/SGOT) 20, Alanine Aminotransferase (ALT/SGPT) 20, Alkaline Phosphatase 92, Total Protein 5.7L, Albumin 1.8L Height (Feet): 6 Height (Inches): 0.00 Weight (Pounds): 203 General Appearance: no apparent distress Cardiovascular: normal rate Respiratory/Chest: decreased breath sounds Abdomen: distended Objective no change Phani Boudreaux MD Apr 30, 2019 10:45
--- NOTE | 2019-04-30 15:35 | NUR ---
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
--- NOTE | 2019-04-30 19:00 | NUR ---
NURSE NOTES:Patient received from Estelle Camacho patient in bed in high peralta position A/A/OX4 . Patient denies any pain . no s/s of distress . Patient on o2 3Lvia n /c in placed . RFA g# 22 H/L Patent and intact . safety/ fall Implemented . call light within reach . bed in low position at all times . bed alarm active. will continue to monitor.
[2019-04-30] MEDS: OLANZapine 2.5mg tab ORAL SCH (20:44)
[2019-04-30] MEDS: TraZODone HCl 25 mg tablet ORAL SCH (20:45)
--- NOTE | 2019-04-30 21:35 | NUR ---
RESPIRATORY NOTE: Wixela Inhaler was not given at 2100. PURA Mccabe administered at 1717 04/30/19. PURA Vargas aware. Addendum: 05/01/19 at 0254 by KUMAR HENSON RT *not given at 1800 by RT.
[2019-05-01] VITALS (10 sets, daily range): BP systolic 150–185; BP diastolic 80–107
--- NOTE | 2019-05-01 02:44 | NUR ---
NURSE NOTES:patient c/o headache . vital sign check blood pressure elevated 185/96 mmhg P 84/MIN. R 20/MIN. T 97.6 SPO2 95% ON 3L VIA N/C Clonidine 0.1 mg po and patient requested Tylenol 650 mg po for headache given to patient AT 02 :44 AM Daquan PAREDES notified and aware. will continue to monitor.
[2019-05-01] MEDS: Albuterol/Ipratropium 3ml neb HHN SCH ×6 (03:17→23:26)
--- NOTE | 2019-05-01 05:23 | NUR ---
NURSE NOTES:Patient reassess after clonidine o.1 mg po . patient vital sign T97.6 P 72/min R 18/ min B/p150/ 96 mmhg trending down will continue to monitor . Addendum: 05/01/19 at 0651 by [address]AR LVN [address] Boyle and Daquan PAREDES notified and aware.
[2019-05-01] MEDS: dilTIAZem HCl 30mg tab ORAL SCH ×3 (05:54→17:36)
--- NOTE | 2019-05-01 06:50 | Pulmonology Progress Note ---
Assessment/Plan Problems: (1) Renal anasarca (2) Nephrotic syndrome (3) Hypertension (4) CRF (chronic renal failure) (5) Anemia, unspecified Assessment/Plan add 25% albumin daily on Lasix.,40 Q8, watch bun/creatinine, slowly rising monitor BP, better than admission Nephrotic syndrom most likely secondary to hypertensive nephropathy dvt prophylaxis. Subjective ROS Limited/Unobtainable: No Constitutional: Reports: no symptoms HEENT: Repors: no symptoms Allergies: Coded Allergies: Dairy (Verified Allergy, Unknown, 04/25/19) PENICILLINS (Verified Allergy, Unknown, 04/25/19) Objective Last 24 Hour Vital Signs Date Time Temp Pulse Resp B/P (MAP) Pulse Ox O2 Delivery O2 Flow Rate FiO2 05/01/19 05:54 72 150/86 05/01/19 04:00 98.0 72 18 150/86 (107) 95 05/01/19 03:30 73 18 96 Nasal Cannula 2.0 28 05/01/19 03:17 70 18 93 Nasal Cannula 2.0 05/01/19 03:13 98.0 05/01/19 02:44 185/96 05/01/19 02:40 97.6 84 18 185/96 (125) 95 05/01/19 00:00 98.0 78 18 152/90 (110) 95 04/30/19 23:07 75 158/90 04/30/19 23:01 75 18 95 Nasal Cannula 2.0 04/30/19 22:48 83 20 95 Nasal Cannula 2.0 04/30/19 21:35 Nasal Cannula 2.0 04/30/19 21:35 Nasal Cannula 2.0 04/30/19 21:00 Nasal Cannula 2.0 04/30/19 20:00 97.0 77 18 158/82 (107) 95 04/30/19 19:38 86 18 96 Nasal Cannula 2.0 28 04/30/19 19:28 93 Nasal Cannula 3.0 32 04/30/19 19:28 81 22 93 Nasal Cannula 2.0 04/30/19 17:15 71 154/87 04/30/19 16:00 97.7 71 18 154/87 (109) 95 04/30/19 14:59 72 18 97 Nasal Cannula 2.0 04/30/19 14:49 69 20 94 Nasal Cannula 2.0 28 04/30/19 11:41 73 160/92 04/30/19 11:39 97.6 73 18 160/92 (114) 95 04/30/19 10:46 88 18 98 Nasal Cannula 2.0 28 04/30/19 10:30 84 16 94 Nasal Cannula 2.0 28 04/30/19 10:30 83 18 94 Nasal Cannula 2.0 28 04/30/19 10:29 83 16 94 Nasal Cannula 2.0 28 04/30/19 09:25 98.3 18 145/85 (105) 98 04/30/19 09:03 98.1 70 20 144/80 (101) 99 04/30/19 09:00 Nasal Cannula 2.0 04/30/19 08:00 97.7 74 152/83 (106) 98 04/30/19 07:43 Nasal Cannula 04/30/19 07:43 Nasal Cannula 04/30/19 07:42 98 Nasal Cannula 2.0 28 Intake and Output 04/30/19 05/01/19 19:00 07:00 Intake Total 1260 ml 630 ml Output Total 1900 ml 550 ml Balance -640 ml 80 ml Intake Oral 960 ml 630 ml IV Total 300 ml Output Urine Total 1900 ml 550 ml General Appearance: WD/WN HEENT: normocephalic, atraumatic Respiratory/Chest: chest wall non-tender, lungs clear Cardiovascular: normal peripheral pulses, regular rhythm, no JVD Abdomen: no organomegaly, no scars Extremities: other - edema Current Medications Medications (Trade) Dose Ordered Sig/Hans Route PRN Reason Start Time Stop Time Status Last Admin Dose Admin Acetaminophen (Tylenol) 650 mg Q4H PRN ORAL Fever (T>100.5 F) 04/27/19 19:00 05/25/19 22:59 05/01/19 02:43 Albuterol/ Ipratropium (Albuterol/ Ipratropium) 3 ml Q4HRT HHN 04/28/19 01:00 05/03/19 00:59 05/01/19 03:17 Amiodarone HCl (Cordarone) 200 mg EVERY 12 HOURS ORAL 04/28/19 21:00 05/26/19 20:59 04/30/19 20:44 Apixaban (Eliquis) 2.5 mg BID ORAL 04/28/19 09:00 05/26/19 17:59 04/30/19 17:15 Cetylpyridinium Chloride (Cepacol) 1 lozg Q2H PRN MARIAMA DRY THROAT 04/29/19 18:15 05/29/19 18:14 Clonidine HCl (Catapres TTS-2) 1 patch QWEEK TDERMAL 04/29/19 15:00 05/29/19 14:59 04/29/19 16:29 Clonidine HCl (Catapres Tab) 0.1 mg Q4H PRN ORAL For SBP>170 04/28/19 16:00 05/27/19 22:29 05/01/19 02:44 Dextrose (Dextrose 50%) 25 ml Q30M PRN IV Hypoglycemia 04/27/19 19:00 05/25/19 22:59 Dextrose (Dextrose 50%) 50 ml Q30MIN PRN IV Hypoglycemia 04/27/19 19:00 05/25/19 22:59 Diltiazem HCl (Cardizem) 90 mg EVERY 6 HOURS ORAL 04/29/19 18:00 05/26/19 11:59 05/01/19 05:54 Epoetin Milton (Epoetin Milton-EPBX(NON ESRD)) 10,000 unit THU-THU-THU SUBQ 04/27/19 21:00 05/27/19 20:59 04/29/19 21:18 Nicotine (Nicoderm) 1 patch Q24H TDERMAL 04/28/19 18:00 05/27/19 17:59 04/30/19 17:16 Olanzapine (ZyPREXA) 2.5 mg BEDTIME ORAL 04/28/19 21:15 05/28/19 21:14 04/30/19 20:44 Ondansetron HCl (Zofran) 4 mg Q6H PRN IVP Nausea & Vomiting 04/27/19 19:00 05/25/19 18:59 Phenol/Menthol (Chloraseptic) 1 spray Q3H PRN ORAL DRY THROAT 04/29/19 18:15 05/29/19 18:14 04/29/19 21:53 Salmeterol Xinafoate/ Fluticasone (Advair 100/50 Diskus) 1 puffs TWICE A DAY INH 04/28/19 21:15 05/28/19 21:14 04/30/19 17:17 Temazepam (Restoril) 15 mg HSPRN PRN ORAL Insomnia 04/27/19 21:00 05/02/19 20:59 04/27/19 21:12 Trazodone HCl (Desyrel) 25 mg BEDTIME ORAL 04/28/19 21:15 05/28/19 21:14 04/30/19 20:45 Lorenza Boyle MD May 01, 2019 06:50
[2019-05-01] MEDS: Lactulose 20gm/30ml UDC ORAL SCH ×5 (07:03→17:35)
[2019-05-01] MEDS: Docusate 100mg cap ORAL SCH ×5 (07:03→17:33)
--- NOTE | 2019-05-01 07:03 | NUR ---
NURSE NOTES: Albumisol 100ml IVPB endorsed to FLOYD Camacho. still awaiting to pharmacy to bring up the medication.
--- NOTE | 2019-05-01 07:12 | NUR ---
HAND-OFF: Report given to Matthieu Camacho
[2019-05-01 07:25] LABS: BASOPHILS % (AUTO) 0.8 % (0.0-2.0); EOSINOPHILS % (AUTO) 5.6 % (0.0-3.0); HEMATOCRIT 25.7 % (42.0-52.0); HEMOGLOBIN 8.4 G/DL (14.2-18.0); MEAN CORPUSCULAR VOLUME 90 FL (80-99); MONOCYTES % (AUTO) 7.9 % (1.0-10.0); NEUTROPHILS % (AUTO) 74.7 % (45.0-75.0); PLATELET COUNT 315 K/UL (150-450); RED BLOOD COUNT 2.86 M/UL (4.70-6.10); RED CELL DISTRIBUTION WIDTH 14.2 % (11.6-14.8); WHITE BLOOD COUNT 10.1 K/UL (4.8-10.8)
[2019-05-01 07:47] LABS: ALANINE AMINOTRANSFERASE 19 U/L (12-78); ALBUMIN 1.8 G/DL (3.4-5.0); ALBUMIN/GLOBULIN RATIO 0.5 (1.0-2.7); ALKALINE PHOSPHATASE 77 U/L (46-116); ANION GAP 14 mmol/L (5-15); ASPARTATE AMINO TRANSFERASE 19 U/L (15-37); BILIRUBIN,TOTAL 0.3 MG/DL (0.2-1.0); BLOOD UREA NITROGEN 57 mg/dL (7-18); CALCIUM 8.1 MG/DL (8.5-10.1); CARBON DIOXIDE 22 MMOL/L (21-32); CHLORIDE 105 MMOL/L (98-107); CREATININE 3.8 MG/DL (0.55-1.30); POTASSIUM 3.7 MMOL/L (3.5-5.1); SODIUM 140 MMOL/L (136-145)
--- NOTE | 2019-05-01 08:03 | General Progress Note ---
Assessment/Plan Problem List: (1) Acute exacerbation of CHF (congestive heart failure) ICD Codes: I50.9 - Heart failure, unspecified SNOMED: 784811199, [id number] Qualifiers: Qualified Codes: I50.9 - Heart failure, unspecified (2) Hypertension ICD Codes: I10 - Essential (primary) hypertension SNOMED: 22758966, [id number] Qualifiers: Qualified Codes: I10 - Essential (primary) hypertension (3) Anemia, unspecified ICD Codes: D64.9 - Anemia, unspecified SNOMED: 548631536 Qualifiers: Qualified Codes: D64.9 - Anemia, unspecified (4) Renal anasarca ICD Codes: N04.9 - Nephrotic syndrome with unspecified morphologic changes SNOMED: 10004747720665 Status: stable, progressing Assessment/Plan: o2 pulm tx cardio f/u pt diet cbc bmp am dc plan snf Subjective Constitutional: Reports: weakness Allergies: Coded Allergies: Dairy (Verified Allergy, Unknown, 04/25/19) PENICILLINS (Verified Allergy, Unknown, 04/25/19) All Systems: reviewed and negative except above Subjective o2nc sleepy Objective Last 24 Hour Vital Signs Date Time Temp Pulse Resp B/P (MAP) Pulse Ox O2 Delivery O2 Flow Rate FiO2 05/01/19 07:08 70 18 100 Nasal Cannula 2.0 05/01/19 06:59 72 22 94 Nasal Cannula 2.0 05/01/19 06:59 94 Nasal Cannula 2.0 05/01/19 05:54 72 150/86 05/01/19 04:00 98.0 72 18 150/86 (107) 05/01/19 03:30 73 18 96 Nasal Cannula 2.0 05/01/19 03:17 70 18 93 Nasal Cannula 2.0 05/01/19 03:13 98.0 05/01/19 02:44 185/96 05/01/19 02:40 97.6 84 18 185/96 (125) 05/01/19 00:00 98.0 78 18 152/90 (110) 04/30/19 23:07 75 158/90 04/30/19 23:01 75 18 95 Nasal Cannula 2.0 04/30/19 22:48 83 20 95 Nasal Cannula 2.0 04/30/19 21:35 Nasal Cannula 2.0 04/30/19 21:35 Nasal Cannula 2.0 04/30/19 21:00 Nasal Cannula 2.0 04/30/19 20:00 97.0 77 18 158/82 (107) 95 04/30/19 19:38 86 18 96 Nasal Cannula 2.0 04/30/19 19:28 93 Nasal Cannula 3.0 04/30/19 19:28 81 22 93 Nasal Cannula 2.0 04/30/19 17:15 71 154/87 04/30/19 16:00 97.7 71 18 154/87 (109) 95 04/30/19 14:59 72 18 97 Nasal Cannula 2.0 04/30/19 14:49 69 20 94 Nasal Cannula 2.0 04/30/19 11:41 73 160/92 04/30/19 11:39 97.6 73 18 160/92 (114) 95 04/30/19 10:46 88 18 98 Nasal Cannula 2.0 04/30/19 10:30 84 16 94 Nasal Cannula 2.0 04/30/19 10:30 83 18 94 Nasal Cannula 2.0 04/30/19 10:29 83 16 94 Nasal Cannula 2.0 04/30/19 09:25 98.3 18 145/85 (105) 98 04/30/19 09:03 98.1 70 20 144/80 (101) 99 04/30/19 09:00 Nasal Cannula 2.0 Intake and Output 04/30/19 05/01/19 19:00 07:00 Intake Total 1260 ml 750 ml Output Total 1900 ml 650 ml Balance -640 ml 100 ml Intake Oral 960 ml 750 ml IV Total 300 ml Output Urine Total 1900 ml 650 ml Laboratory Tests 05/01/19 04:40: White Blood Count 10.1, Red Blood Count 2.86L, Hemoglobin 8.4L, Hematocrit 25.7L , Mean Corpuscular Volume 90, Mean Corpuscular Hemoglobin 29.4, Mean Corpuscular Hemoglobin Concent 32.8, Red Cell Distribution Width 14.2, Platelet Count 315, Mean Platelet Volume 4.7L, Neutrophils (%) (Auto) 74.7, Lymphocytes ( %) (Auto) 11.0L, Monocytes (%) (Auto) 7.9, Eosinophils (%) (Auto) 5.6H, Basophils (%) (Auto) 0.8, Sodium Level 140, Potassium Level 3.7, Chloride Level 105, Carbon Dioxide Level 22, Anion Gap 14, Blood Urea Nitrogen 57H, Creatinine 3.8H, Estimat Glomerular Filtration Rate 16.1, Glucose Level 120H, Calcium Level 8.1L, Total Bilirubin 0.3, Aspartate Amino Transf (AST/SGOT) 19, Alanine Aminotransferase (ALT/SGPT) 19, Alkaline Phosphatase 77, Pro-B-Type Natriuretic Peptide 54503W, Total Protein 5.2L, Albumin 1.8L, Globulin 3.4, Albumin/ Globulin Ratio 0.5L Height (Feet): 6 Height (Inches): 0.00 Weight (Pounds): 213 General Appearance: lethargic EENT: normal ENT inspection Neck: normal alignment Cardiovascular: normal peripheral pulses, normal rate, regular rhythm Respiratory/Chest: chest wall non-tender, lungs clear, normal breath sounds Abdomen: normal bowel sounds, non tender, soft Extremities: normal inspection Edema: no edema noted Arm (L), no edema noted Arm (R), no edema noted Leg (L), no edema noted Leg (R), no edema noted Pedal (L), no edema noted Pedal (R), no edema noted Generalized Neurologic: motor weakness Skin: normal pigmentation, warm/dry Rick Marquez DO May 01, 2019 08:03
--- NOTE | 2019-05-01 08:14 | NUR ---
NURSE NOTES: received report from MIRIAN Contreras. patient in bed. having breakfast. A&Ox4. verbally responsive. no respiratory distress noted on room air. no c/o pain. IV on RFA intact. strict I&O. the bed in the lowest position. call light within reach. will provide plan of care.
[2019-05-01] MEDS ORDERED: Fleet's Mineral Oil Enema RECTAL SCH (09:00)
[2019-05-01] MEDS: Eliquis 2.5mg tablet ORAL SCH ×2 (09:05→17:33)
[2019-05-01] MEDS: Amiodarone 200mg tab ORAL SCH ×2 (09:05→20:32)
--- NOTE | 2019-05-01 09:11 | Cardiology Progress Note ---
Assessment/Plan Status: stable Assessment/Plan Assessment/Plan Assessment/Plan 1. Atrial fibrillation with rapid ventricular response 150s based on EKG on A 12-lead EKG from 10/26/19 at 7:11 a.m. shows sinus rhythm with first-degree AV block with left posterior fascicular block as well as inferolateral ischemia on the EKG. Continue Cardizem to 90 mg every 6 hours and amiodarone 400 daily and Eliquis 2.5 bid 2. Congestive heart failure with BNP > 42946. Echocardiogram showed EF of 55% with diastolic dysfunction. Continue Lasix 40 mg IV every 8 hours as well as Cardizem. Likely due to volume overload due to renal failure. Transition to PO lasix 3. Hypertension. Blood pressure was in 200. Continue Lasix and increase Cardizem to 90 q 6. Add prn Clonidine. 4. Acute renal failure. BUN/CR 45/3.4 ? Nephrotic syndrome. FU Dr Boudreaux. May need HD 5. History of schizophrenia. Further evaluation by Psychiatry. Subjective Cardiovascular: Reports: no symptoms Respiratory: Reports: no symptoms Gastrointestinal/Abdominal: Reports: no symptoms Genitourinary: Reports: no symptoms Subjective Coverage for [place] no acute events, vitals stable, no distress, creatinine stable, tolerating PO Objective Last 24 Hour Vital Signs Date Time Temp Pulse Resp B/P (MAP) Pulse Ox O2 Delivery O2 Flow Rate FiO2 05/01/19 08:00 97.9 71 20 158/107 (124) 94 05/01/19 07:08 70 18 100 Nasal Cannula 2.0 28 05/01/19 06:59 72 22 94 Nasal Cannula 2.0 28 05/01/19 06:59 94 Nasal Cannula 2.0 28 05/01/19 05:54 72 150/86 05/01/19 04:00 98.0 72 18 150/86 (107) 95 05/01/19 03:30 73 18 96 Nasal Cannula 2.0 28 05/01/19 03:17 70 18 93 Nasal Cannula 2.0 05/01/19 03:13 98.0 05/01/19 02:44 185/96 05/01/19 02:40 97.6 84 18 185/96 (125) 95 05/01/19 00:00 98.0 78 18 152/90 (110) 95 04/30/19 23:07 75 158/90 04/30/19 23:01 75 18 95 Nasal Cannula 2.0 04/30/19 22:48 83 20 95 Nasal Cannula 2.0 04/30/19 21:35 Nasal Cannula 2.0 04/30/19 21:35 Nasal Cannula 2.0 04/30/19 21:00 Nasal Cannula 2.0 04/30/19 20:00 97.0 77 18 158/82 (107) 04/30/19 19:38 86 18 96 Nasal Cannula 2.0 04/30/19 19:28 93 Nasal Cannula 3.0 32 04/30/19 19:28 81 22 93 Nasal Cannula 2.0 04/30/19 17:15 71 154/87 04/30/19 16:00 97.7 71 18 154/87 (109) 04/30/19 14:59 72 18 97 Nasal Cannula 2.0 04/30/19 14:49 69 20 94 Nasal Cannula 2.0 04/30/19 11:41 73 160/92 04/30/19 11:39 97.6 73 18 160/92 (114) 95 04/30/19 10:46 88 18 98 Nasal Cannula 2.0 04/30/19 10:30 84 16 94 Nasal Cannula 2.0 04/30/19 10:30 83 18 94 Nasal Cannula 2.0 04/30/19 10:29 83 16 94 Nasal Cannula 2.0 04/30/19 09:25 98.3 18 145/85 (105) 98 General Appearance: no apparent distress, alert EENT: PERRL/EOMI, normal ENT inspection, TMs normal, pharynx normal Neck: non-tender, normal alignment, supple, normal inspection, no JVD Rhythm: NSR Cardiovascular: normal peripheral pulses, normal rate, regular rhythm Respiratory/Chest: chest wall non-tender, lungs clear Abdomen: normal bowel sounds, non tender Extremities: normal range of motion, non-tender, normal inspection 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, no motor/sensory deficits Intake and Output 04/30/19 05/01/19 19:00 07:00 Intake Total 1260 ml 750 ml Output Total 1900 ml 650 ml Balance -640 ml 100 ml Intake Oral 960 ml 750 ml IV Total 300 ml Output Urine Total 1900 ml 650 ml Laboratory Tests Test 05/01/19 04:40 White Blood Count 10.1 K/UL (4.8-10.8) Red Blood Count 2.86 M/UL (4.70-6.10) L Hemoglobin 8.4 G/DL (14.2-18.0) L Hematocrit 25.7 % (42.0-52.0) L Mean Corpuscular Volume 90 FL (80-99) Mean Corpuscular Hemoglobin 29.4 PG (27.0-31.0) Mean Corpuscular Hemoglobin Concent 32.8 G/DL (32.0-36.0) Red Cell Distribution Width 14.2 % (11.6-14.8) Platelet Count 315 K/UL (150-450) Mean Platelet Volume 4.7 FL (6.5-10.1) L Neutrophils (%) (Auto) 74.7 % (45.0-75.0) Lymphocytes (%) (Auto) 11.0 % (20.0-45.0) L Monocytes (%) (Auto) 7.9 % (1.0-10.0) Eosinophils (%) (Auto) 5.6 % (0.0-3.0) H Basophils (%) (Auto) 0.8 % (0.0-2.0) Sodium Level 140 MMOL/L (136-145) Potassium Level 3.7 MMOL/L (3.5-5.1) Chloride Level 105 MMOL/L (98-107) Carbon Dioxide Level 22 MMOL/L (21-32) Anion Gap 14 mmol/L (5-15) Blood Urea Nitrogen 57 mg/dL (7-18) H Creatinine 3.8 MG/DL (0.55-1.30) H Estimat Glomerular Filtration Rate 16.1 mL/min (>60) Glucose Level 120 MG/DL (74-106) H Calcium Level 8.1 MG/DL (8.5-10.1) L Total Bilirubin 0.3 MG/DL (0.2-1.0) Aspartate Amino Transf (AST/SGOT) 19 U/L (15-37) Alanine Aminotransferase (ALT/SGPT) 19 U/L (12-78) Alkaline Phosphatase 77 U/L (46-116) Pro-B-Type Natriuretic Peptide 59383 pg/mL (0-125) H Total Protein 5.2 G/DL (6.4-8.2) L Albumin 1.8 G/DL (3.4-5.0) L Globulin 3.4 g/dL Albumin/Globulin Ratio 0.5 (1.0-2.7) L Otto Enamorado MD May 01, 2019 09:11
[2019-05-01] MEDS: Wixela 100/50 Inhaler - 60 dose INH SCH ×2 (09:40→19:53)
--- NOTE | 2019-05-01 13:00 | NUR ---
NURSE NOTES: patient BP was 184/91 HR77 @1200. administered cardizem 90mg po as scheduled and clonidine 0.1mg prn if SBP>180. no c/o headache. alert. oriented. verbally responsive. rechecked @1235. 173/100, HR 76. patient mentioned he just had a big bowel movement. he has been constipated for 6days. will recheck later.
--- NOTE | 2019-05-01 14:35 | NUR ---
NURSE NOTES: blood pressure 170/87 HR75 @1425. no c/o headache. patient alert. oriented. verbally responsive. called Dr. Huitron and waiting for call back for further order.
--- NOTE | 2019-05-01 15:00 | NUR ---
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
--- NOTE | 2019-05-01 15:44 | Nephrology Progress Note ---
Assessment/Plan Problem List: (1) CRF (chronic renal failure) (2) Hypertension (3) Anemia, unspecified (4) Acute exacerbation of CHF (congestive heart failure) (5) Hypercholesteremia Assessment: likely due to NS Assessment Chronic renal Failure- Sever HypoAlbuminemia, h/o Nephrotic Syndrome , Etiology??? CHF HTN Anemia Schizophrenia Plan stop Lasix patient refuses HD Iron studies, noted EPO SQ 24 H Urine protein and CrCl is 8 Keep BP in check 2D echo 55% EjFx MAVERICK Kidney neg for obstruction per orders Kidney Bx has diagnostic indication Subjective ROS Limited/Unobtainable: No Constitutional: Reports: malaise Objective Objective Last 24 Hour Vital Signs Date Time Temp Pulse Resp B/P (MAP) Pulse Ox O2 Delivery O2 Flow Rate FiO2 05/01/19 15:12 88 20 98 Nasal Cannula 2.0 28 05/01/19 15:02 Nasal Cannula 2.0 05/01/19 15:00 168/80 (109) 05/01/19 15:00 86 22 95 Nasal Cannula 2.0 28 05/01/19 14:25 170/87 (114) 05/01/19 12:35 173/100 (124) 05/01/19 12:05 184/71 05/01/19 12:02 77 184/91 05/01/19 12:00 97.9 77 18 184/91 (122) 97 05/01/19 11:29 90 22 97 Nasal Cannula 2.0 28 05/01/19 11:15 90 26 93 Nasal Cannula 2.0 28 05/01/19 09:00 Nasal Cannula 2.0 05/01/19 09:00 70 18 97 Nasal Cannula 2.0 28 05/01/19 09:00 70 18 97 Nasal Cannula 2.0 28 05/01/19 08:00 97.9 71 20 158/107 (124) 94 05/01/19 07:08 70 18 100 Nasal Cannula 2.0 28 05/01/19 06:59 72 22 94 Nasal Cannula 2.0 28 05/01/19 06:59 94 Nasal Cannula 2.0 28 05/01/19 05:54 72 150/86 05/01/19 04:00 98.0 72 18 150/86 (107) 95 05/01/19 03:30 73 18 96 Nasal Cannula 2.0 28 05/01/19 03:17 70 18 93 Nasal Cannula 2.0 28 05/01/19 03:13 98.0 05/01/19 02:44 185/96 05/01/19 02:40 97.6 84 18 185/96 (125) 95 05/01/19 00:00 98.0 78 18 152/90 (110) 95 04/30/19 23:07 75 158/90 04/30/19 23:01 75 18 95 Nasal Cannula 2.0 04/30/19 22:48 83 20 95 Nasal Cannula 2.0 04/30/19 21:35 Nasal Cannula 2.0 04/30/19 21:35 Nasal Cannula 2.0 28 04/30/19 21:00 Nasal Cannula 2.0 04/30/19 20:00 97.0 77 18 158/82 (107) 95 04/30/19 19:38 86 18 96 Nasal Cannula 2.0 04/30/19 19:28 93 Nasal Cannula 3.0 32 04/30/19 19:28 81 22 93 Nasal Cannula 2.0 04/30/19 17:15 71 154/87 04/30/19 16:00 97.7 71 18 154/87 (109) 95 Intake and Output 04/30/19 05/01/19 19:00 07:00 Intake Total 1260 ml 750 ml Output Total 1900 ml 650 ml Balance -640 ml 100 ml Intake Oral 960 ml 750 ml IV Total 300 ml Output Urine Total 1900 ml 650 ml Laboratory Tests 05/01/19 04:40: White Blood Count 10.1, Red Blood Count 2.86L, Hemoglobin 8.4L, Hematocrit 25.7L , Mean Corpuscular Volume 90, Mean Corpuscular Hemoglobin 29.4, Mean Corpuscular Hemoglobin Concent 32.8, Red Cell Distribution Width 14.2, Platelet Count 315, Mean Platelet Volume 4.7L, Neutrophils (%) (Auto) 74.7, Lymphocytes ( %) (Auto) 11.0L, Monocytes (%) (Auto) 7.9, Eosinophils (%) (Auto) 5.6H, Basophils (%) (Auto) 0.8, Sodium Level 140, Potassium Level 3.7, Chloride Level 105, Carbon Dioxide Level 22, Anion Gap 14, Blood Urea Nitrogen 57H, Creatinine 3.8H, Estimat Glomerular Filtration Rate 16.1, Glucose Level 120H, Calcium Level 8.1L, Total Bilirubin 0.3, Aspartate Amino Transf (AST/SGOT) 19, Alanine Aminotransferase (ALT/SGPT) 19, Alkaline Phosphatase 77, Pro-B-Type Natriuretic Peptide 11320A, Total Protein 5.2L, Albumin 1.8L, Globulin 3.4, Albumin/ Globulin Ratio 0.5L Height (Feet): 6 Height (Inches): 0.00 Weight (Pounds): 213 General Appearance: no apparent distress Objective no change Phani Boudreaux MD May 01, 2019 15:44
[2019-05-01 16:12] LABS: PHOSPHORUS 4.9 MG/DL (2.5-4.9)
--- NOTE | 2019-05-01 16:29 | NUR ---
NURSE NOTES: received call back from Dr Huitron. Dr. Enamorado will cover cardio for weekend.
--- NOTE | 2019-05-01 16:43 | NUR ---
NURSE NOTES: blood pressure was 172/87, HR76 @1640. administered Clonidine 0.1mg tab po PRN for HTN as ordered.
--- NOTE | 2019-05-01 17:51 | NUR ---
NURSE NOTES: blood pressure 180/100 Hr79 after clonidine 0.1mg po PRN. notified patsy Dai and received order of Hydralazine 25mg po Q6hrs PRN if SBP>160. order noted and carried out.
[2019-05-01] MEDS: HydrALAZINE 25mg tab ORAL PRN (19:04)
--- NOTE | 2019-05-01 19:04 | NUR ---
NURSE NOTES: blood pressure 163/95. HR75@1700 administered Hydralizine 25mg tab po PRN @1705 as ordered.
--- NOTE | 2019-05-01 19:21 | NUR ---
HAND-OFF: Report given to abdoulaye Fagan RN.
[2019-05-01] MEDS: OLANZapine 2.5mg tab ORAL SCH (20:32)
[2019-05-01] MEDS: TraZODone HCl 25 mg tablet ORAL SCH (20:32)
--- NOTE | 2019-05-01 22:06 | NUR ---
NURSE NOTES: Patient in bed awake and oriented. RT gave breathing Tx and increased O2 to 3L NC. O2 Sat at 93%. Needs attended. Due meds given. Call light within reach. In stable condition.
[2019-05-02] VITALS (8 sets, daily range): BP systolic 148–193; BP diastolic 82–110
[2019-05-02] MEDS: Albuterol/Ipratropium 3ml neb HHN SCH ×4 (03:14→15:28)
[2019-05-02] MEDS: dilTIAZem HCl 30mg tab ORAL SCH ×4 (05:44→17:56)
[2019-05-02] MEDS: HydrALAZINE 25mg tab ORAL PRN ×2 (05:45→12:10)
--- NOTE | 2019-05-02 07:24 | NUR ---
NURSE NOTES: AWAKE/ALERT. NO C/O PAIN.BLE EDEMATOUS. 02 3L N/C. NO ACUTE SOB. IN NO DISTRESS.
[2019-05-02] MEDS: Wixela 100/50 Inhaler - 60 dose INH SCH ×2 (08:36→18:15)
--- NOTE | 2019-05-02 08:39 | General Progress Note ---
Assessment/Plan Problem List: (1) Acute exacerbation of CHF (congestive heart failure) ICD Codes: I50.9 - Heart failure, unspecified SNOMED: 902570207, 12356083938016 Qualifiers: Qualified Codes: I50.9 - Heart failure, unspecified (2) Hypertension ICD Codes: I10 - Essential (primary) hypertension SNOMED: 80500438, 12100130133021 Qualifiers: Qualified Codes: I10 - Essential (primary) hypertension (3) Anemia, unspecified ICD Codes: D64.9 - Anemia, unspecified SNOMED: 124716796 Qualifiers: Qualified Codes: D64.9 - Anemia, unspecified (4) Renal anasarca ICD Codes: N04.9 - Nephrotic syndrome with unspecified morphologic changes SNOMED: 28162305312464 Status: stable, progressing Assessment/Plan: o2 pulm tx cardio f/u pt diet cbc bmp am dc plan snf Subjective Constitutional: Reports: weakness Allergies: Coded Allergies: Dairy (Verified Allergy, Unknown, 04/25/19) PENICILLINS (Verified Allergy, Unknown, 04/25/19) All Systems: reviewed and negative except above Subjective o2nc sleepy Objective Last 24 Hour Vital Signs Date Time Temp Pulse Resp B/P (MAP) Pulse Ox O2 Delivery O2 Flow Rate FiO2 05/02/19 08:37 70 18 94 Nasal Cannula 2.0 05/02/19 08:37 69 18 97 Nasal Cannula 2.0 05/02/19 08:37 70 20 96 Nasal Cannula 2.0 05/02/19 08:30 67 18 95 Nasal Cannula 2.0 05/02/19 08:20 Nasal Cannula 2.0 05/02/19 07:25 93 Nasal Cannula 2.0 05/02/19 05:45 163/84 05/02/19 05:44 74 148/82 05/02/19 04:00 98.1 74 18 148/82 (104) 94 05/02/19 03:14 74 18 95 Nasal Cannula 2.0 05/02/19 03:04 70 18 93 Nasal Cannula 2.0 05/02/19 00:31 172/100 05/02/19 00:00 97.2 75 19 162/84 (110) 95 05/02/19 00:00 75 162/84 05/01/19 23:43 78 20 96 Nasal Cannula 2.0 28 /30/19 23:26 74 18 92 Nasal Cannula 2.0 05/01/19 21:00 72 18 98 Nasal Cannula 2.0 05/01/19 21:00 72 18 98 Nasal Cannula 2.0 05/01/19 21:00 Nasal Cannula 2.0 05/01/19 20:08 72 20 97 Nasal Cannula 2.0 05/01/19 19:54 71 18 90 Nasal Cannula 2.0 05/01/19 19:54 90 Nasal Cannula 2.0 05/01/19 19:04 163/95 05/01/19 19:02 75 163/95 (117) 05/01/19 17:36 73 172/87 05/01/19 16:42 172/87 05/01/19 16:00 98.1 73 20 172/87 (115) 94 05/01/19 15:12 88 20 98 Nasal Cannula 2.0 05/01/19 15:02 Nasal Cannula 2.0 05/01/19 15:00 168/80 (109) 05/01/19 15:00 86 22 95 Nasal Cannula 2.0 05/01/19 14:25 170/87 (114) 05/01/19 12:35 173/100 (124) 05/01/19 12:05 184/71 05/01/19 12:02 77 184/91 05/01/19 12:00 97.9 77 18 184/91 (122) 97 05/01/19 11:29 90 22 97 Nasal Cannula 2.0 05/01/19 11:15 90 26 93 Nasal Cannula 2.0 05/01/19 09:00 Nasal Cannula 2.0 05/01/19 09:00 70 18 97 Nasal Cannula 2.0 05/01/19 09:00 70 18 97 Nasal Cannula 2.0 28 Intake and Output 05/01/19 05/02/19 19:00 07:00 Intake Total 300 ml 450 ml Output Total 500 ml 600 ml Balance -200 ml -150 ml Intake Oral 300 ml 450 ml Output Urine Total 500 ml 600 ml Height (Feet): 6 Height (Inches): 0.00 Weight (Pounds): 210 General Appearance: lethargic EENT: normal ENT inspection Neck: normal alignment Cardiovascular: normal peripheral pulses, normal rate, regular rhythm Respiratory/Chest: chest wall non-tender, lungs clear, normal breath sounds Abdomen: normal bowel sounds, non tender, soft Extremities: normal inspection Edema: no edema noted Arm (L), no edema noted Arm (R), no edema noted Leg (L), no edema noted Leg (R), no edema noted Pedal (L), no edema noted Pedal (R), no edema noted Generalized Neurologic: motor weakness Skin: normal pigmentation, warm/dry Rick Marquez DO May 02, 2019 08:39
[2019-05-02] MEDS: Docusate 100mg cap ORAL SCH ×3 (08:40→17:55)
[2019-05-02] MEDS: Amiodarone 200mg tab ORAL SCH (08:40)
[2019-05-02] MEDS: Eliquis 2.5mg tablet ORAL SCH ×2 (08:40→17:54)
[2019-05-02] MEDS: Lactulose 20gm/30ml UDC ORAL SCH ×3 (08:40→17:55)
--- NOTE | 2019-05-02 08:46 | NUR ---
RADIOLOGY DEPT., CHEST X-RAY DONE.-P.DYE
[2019-05-02 10:58] LABS: BASOPHILS % (AUTO) 1.3 % (0.0-2.0); EOSINOPHILS % (AUTO) 7.4 % (0.0-3.0); HEMATOCRIT 28.7 % (42.0-52.0); HEMOGLOBIN 9.3 G/DL (14.2-18.0); LYMPHOCYTES % (AUTO) 13.5 % (20.0-45.0); MEAN CORPUSCULAR VOLUME 90 FL (80-99); MONOCYTES % (AUTO) 6.6 % (1.0-10.0); NEUTROPHILS % (AUTO) 71.2 % (45.0-75.0); PLATELET COUNT 337 K/UL (150-450); RED BLOOD COUNT 3.18 M/UL (4.70-6.10); RED CELL DISTRIBUTION WIDTH 14.1 % (11.6-14.8); WHITE BLOOD COUNT 7.5 K/UL (4.8-10.8)
[2019-05-02 11:10] LABS: PHOSPHORUS 4.8 MG/DL (2.5-4.9)
[2019-05-02 11:22] LABS: ALANINE AMINOTRANSFERASE 24 U/L (12-78); ALBUMIN/GLOBULIN RATIO 0.6 (1.0-2.7); ALKALINE PHOSPHATASE 91 U/L (46-116); ANION GAP 12 mmol/L (5-15); ASPARTATE AMINO TRANSFERASE 20 U/L (15-37); BILIRUBIN,TOTAL 0.3 MG/DL (0.2-1.0); BLOOD UREA NITROGEN 52 mg/dL (7-18); CALCIUM 8.1 MG/DL (8.5-10.1); CARBON DIOXIDE 23 MMOL/L (21-32); CHLORIDE 105 MMOL/L (98-107); CREATININE 3.8 MG/DL (0.55-1.30); SODIUM 140 MMOL/L (136-145)
--- NOTE | 2019-05-02 12:20 | Diagnostic Imaging Report ---
Indication: Shortness of breath Technique: One view of the chest Comparison: 04/26/2019 Findings: Moderate to large left pleural effusion persists. Interim development of bilateral diffuse interstitial and hazy airspace opacities. The heart is borderline enlarged. Impression: Bilateral interstitial and airspace disease, infiltrates versus edema, developing since prior exam of 04/26/2019 Moderate to large left pleural effusion again demonstrated
--- NOTE | 2019-05-02 12:38 | Nephrology Progress Note ---
Assessment/Plan Problem List: (1) CRF (chronic renal failure) (2) Hypertension (3) Anemia, unspecified (4) Acute exacerbation of CHF (congestive heart failure) (5) Hypercholesteremia Assessment: likely due to NS Assessment Chronic renal Failure- Sever HypoAlbuminemia, h/o Nephrotic Syndrome , Etiology??? CHF HTN Anemia Schizophrenia Plan stop Lasix patient refuses HD one dose Zaroxylin adjust BP meds Iron studies, noted EPO SQ 24 H Urine protein and CrCl is 8 Keep BP in check 2D echo 55% EjFx MAVERICK Kidney neg for obstruction per orders Kidney Bx has diagnostic indication Subjective ROS Limited/Unobtainable: No Constitutional: Reports: malaise Objective Objective Last 24 Hour Vital Signs Date Time Temp Pulse Resp B/P (MAP) Pulse Ox O2 Delivery O2 Flow Rate FiO2 05/02/19 12:10 193/110 05/02/19 12:10 80 193/110 05/02/19 10:47 61 18 97 Nasal Cannula 2.0 28 05/02/19 10:40 62 18 92 Nasal Cannula 2.0 28 05/02/19 08:37 70 18 94 Nasal Cannula 2.0 28 05/02/19 08:37 69 18 97 Nasal Cannula 2.0 28 05/02/19 08:37 70 20 96 Nasal Cannula 2.0 28 05/02/19 08:30 67 18 95 Nasal Cannula 2.0 28 05/02/19 08:20 Nasal Cannula 2.0 05/02/19 08:00 97.1 64 18 150/86 (107) 95 05/02/19 07:25 93 Nasal Cannula 2.0 05/02/19 05:45 163/84 05/02/19 05:44 74 148/82 05/02/19 04:00 98.1 74 18 148/82 (104) 94 05/02/19 03:14 74 18 95 Nasal Cannula 2.0 28 05/02/19 03:04 70 18 93 Nasal Cannula 2.0 28 05/02/19 00:31 172/100 05/02/19 00:00 97.2 75 19 162/84 (110) 95 05/02/19 00:00 75 162/84 05/01/19 23:43 78 20 96 Nasal Cannula 2.0 28 05/01/19 23:26 74 18 92 Nasal Cannula 2.0 28 05/01/19 21:00 72 18 98 Nasal Cannula 2.0 28 05/01/19 21:00 72 18 98 Nasal Cannula 2.0 28 05/01/19 21:00 Nasal Cannula 2.0 05/01/19 20:08 72 20 97 Nasal Cannula 2.0 05/01/19 19:54 71 18 90 Nasal Cannula 2.0 28 05/01/19 19:54 90 Nasal Cannula 2.0 28 05/01/19 19:04 163/95 05/01/19 19:02 75 163/95 (117) 05/01/19 17:36 73 172/87 05/01/19 16:42 172/87 05/01/19 16:00 98.1 73 20 172/87 (115) 94 05/01/19 15:12 88 20 98 Nasal Cannula 2.0 05/01/19 15:02 Nasal Cannula 2.0 05/01/19 15:00 168/80 (109) 05/01/19 15:00 86 22 95 Nasal Cannula 2.0 05/01/19 14:25 170/87 (114) Intake and Output 05/01/19 05/02/19 19:00 07:00 Intake Total 300 ml 450 ml Output Total 500 ml 600 ml Balance -200 ml -150 ml Intake Oral 300 ml 450 ml Output Urine Total 500 ml 600 ml Current Medications Medications (Trade) Dose Ordered Sig/Hans Route PRN Reason Start Time Stop Time Status Last Admin Dose Admin Acetaminophen (Tylenol) 650 mg Q4H PRN ORAL Fever (T>100.5 F) 04/27/19 19:00 05/25/19 22:59 05/02/19 00:32 Albuterol/ Ipratropium (Albuterol/ Ipratropium) 3 ml Q4HRT HHN 04/28/19 01:00 05/03/19 00:59 05/02/19 15:28 Allopurinol (Allopurinol) 300 mg DAILY ORAL 05/02/19 12:45 06/01/19 12:44 05/02/19 12:50 Amiodarone HCl (Cordarone) 200 mg EVERY 12 HOURS ORAL 04/28/19 21:00 05/26/19 20:59 05/02/19 08:40 Apixaban (Eliquis) 2.5 mg BID ORAL 04/28/19 09:00 05/26/19 17:59 05/02/19 08:40 Cetylpyridinium Chloride (Cepacol) 1 lozg Q2H PRN MARIAMA DRY THROAT 04/29/19 18:15 05/29/19 18:14 Clonidine HCl (Catapres Tab) 0.1 mg EVERY 8 HOURS ORAL 05/02/19 14:00 06/01/19 13:59 05/02/19 14:22 Dextrose (Dextrose 50%) 25 ml Q30M PRN IV Hypoglycemia 04/27/19 19:00 05/25/19 22:59 Dextrose (Dextrose 50%) 50 ml Q30MIN PRN IV Hypoglycemia 04/27/19 19:00 05/25/19 22:59 Diltiazem HCl (Cardizem) 90 mg EVERY 6 HOURS ORAL 04/29/19 18:00 05/26/19 11:59 05/02/19 12:10 Docusate Sodium (Colace) 100 mg THREE TIMES A DAY ORAL 05/01/19 07:00 05/31/19 06:59 05/02/19 12:32 Epoetin Milton (Epoetin Milton-EPBX(NON ESRD)) 10,000 unit THU-THU-THU SUBQ 04/27/19 21:00 05/27/19 20:59 04/29/19 21:18 Lactulose (Cephulac) 30 gm THREE TIMES A DAY ORAL 05/01/19 07:00 05/31/19 06:59 05/02/19 12:32 Mineral Oil (Fleet's Mineral Oil Enema) 133 ml EVERY OTHER DAY RECTAL 05/01/19 09:00 05/31/19 08:59 Minoxidil (Loniten) 2.5 mg Q4H PRN ORAL bp over 165 syst 05/02/19 12:45 06/01/19 12:44 05/02/19 12:50 Nicotine (Nicoderm) 1 patch Q24H TDERMAL 04/28/19 18:00 05/27/19 17:59 05/01/19 17:33 Olanzapine (ZyPREXA) 2.5 mg BEDTIME ORAL 04/28/19 21:15 05/28/19 21:14 05/01/19 20:32 Ondansetron HCl (Zofran) 4 mg Q6H PRN IVP Nausea & Vomiting 04/27/19 19:00 05/25/19 18:59 Phenol/Menthol (Chloraseptic) 1 spray Q3H PRN ORAL DRY THROAT 04/29/19 18:15 05/29/19 18:14 04/29/19 21:53 Salmeterol Xinafoate/ Fluticasone (Advair 100/50 Diskus) 1 puffs TWICE A DAY INH 04/28/19 21:15 05/28/19 21:14 05/02/19 08:36 Temazepam (Restoril) 15 mg HSPRN PRN ORAL Insomnia 04/27/19 21:00 05/02/19 20:59 04/27/19 21:12 Trazodone HCl (Desyrel) 25 mg BEDTIME ORAL 04/28/19 21:15 05/28/19 21:14 05/01/19 20:32 Laboratory Tests 05/02/19 10:40: White Blood Count 7.5, Red Blood Count 3.18L, Hemoglobin 9.3L, Hematocrit 28.7L , Mean Corpuscular Volume 90, Mean Corpuscular Hemoglobin 29.1, Mean Corpuscular Hemoglobin Concent 32.2, Red Cell Distribution Width 14.1, Platelet Count 337, Mean Platelet Volume 4.7L, Neutrophils (%) (Auto) 71.2, Lymphocytes ( %) (Auto) 13.5L, Monocytes (%) (Auto) 6.6, Eosinophils (%) (Auto) 7.4H, Basophils (%) (Auto) 1.3, Sodium Level 140, Potassium Level 4.0, Chloride Level 105, Carbon Dioxide Level 23, Anion Gap 12, Blood Urea Nitrogen 52H, Creatinine 3.8H, Estimat Glomerular Filtration Rate 16.1, Glucose Level 183H, Uric Acid 9.1H, Calcium Level 8.1L, Phosphorus Level 4.8, Magnesium Level 2.2, Total Bilirubin 0.3, Aspartate Amino Transf (AST/SGOT) 20, Alanine Aminotransferase ( ALT/SGPT) 24, Alkaline Phosphatase 91, Pro-B-Type Natriuretic Peptide 93555B, Total Protein 5.6L, Albumin 2.0L, Globulin 3.6, Albumin/Globulin Ratio 0.6L Height (Feet): 6 Height (Inches): 0.00 Weight (Pounds): 210 General Appearance: no apparent distress Cardiovascular: normal rate Respiratory/Chest: decreased breath sounds Abdomen: distended Extremities: moderate edema Objective no change Phani Boudreaux MD May 02, 2019 12:38
[2019-05-02] MEDS: Minoxidil 2.5mg tab ORAL PRN ×2 (12:50→18:48)
[2019-05-02] MEDS ORDERED: PACERONE200 MG ORAL (14:53)
[2019-05-02] MEDS ORDERED: OLANZAPINE2.5 MG ORAL (14:53)
[2019-05-02] MEDS ORDERED: ALLOPURINOL100 M1 ORAL (14:53)
[2019-05-02] MEDS ORDERED: LONITEN2.5 MG ORAL (14:53)
[2019-05-02] MEDS ORDERED: CARDIZEM30 MG ORAL (14:53)
--- NOTE | 2019-05-02 15:00 | NUR ---
NURSE NOTES: BP RECHECKED 182/102,P 72. 02 SAT ON 3L N/C 92-03%. ON RA 02 SAT 02-93%. DR PACKER INFORMED. PT STILL FOR DISCHARGE.
--- NOTE | 2019-05-02 16:05 | Cardiac Electrophysiology PN ---
Assessment/Plan Assessment/Plan 1. Atrial fibrillation with rapid ventricular response 150s based on EKG on A 12-lead EKG from 10/26/19 at 7:11 a.m. shows sinus rhythm with first-degree AV block with left posterior fascicular block as well as inferolateral ischemia on the EKG. On Cardizem 90 mg every 6 hours and amiodarone 200 bid and Eliquis 2.5 bid 2. Congestive heart failure with BNP > 95243. Echocardiogram showed EF of 55% with diastolic dysfunction. Likely due to volume overload due to renal failure. 3. Hypertension. Blood pressure was in 200. On Cardizem 90 q 6 and prn Clonidine. 4. Acute renal failure. BUN/CR 52/3.8 ? Nephrotic syndrome. FU Dr Boudreaux. May need HD 5. History of schizophrenia. Further evaluation by Psychiatry. MIKE RN Subjective Subjective Alert in NAD. Still very swollen. DC planning today to [facility] Objective Last 24 Hour Vital Signs Date Time Temp Pulse Resp B/P (MAP) Pulse Ox O2 Delivery O2 Flow Rate FiO2 05/02/19 15:29 66 16 97 Nasal Cannula 2.0 28 05/02/19 15:22 69 16 94 Nasal Cannula 2.0 28 05/02/19 15:02 182/102 (128) 05/02/19 14:22 177/103 05/02/19 14:00 177/103 (127) 05/02/19 12:50 193/110 05/02/19 12:10 193/110 05/02/19 12:10 80 193/110 05/02/19 12:00 97.2 80 22 193/110 (137) 93 05/02/19 10:47 61 18 97 Nasal Cannula 2.0 28 05/02/19 10:40 62 18 92 Nasal Cannula 2.0 28 05/02/19 08:37 70 18 94 Nasal Cannula 2.0 28 05/02/19 08:37 69 18 97 Nasal Cannula 2.0 28 05/02/19 08:37 70 20 96 Nasal Cannula 2.0 28 05/02/19 08:30 67 18 95 Nasal Cannula 2.0 28 05/02/19 08:20 Nasal Cannula 2.0 05/02/19 08:00 97.1 64 18 150/86 (107) 95 05/02/19 07:25 93 Nasal Cannula 2.0 05/02/19 05:45 163/84 05/02/19 05:44 74 148/82 05/02/19 04:00 98.1 74 18 148/82 (104) 94 05/02/19 03:14 74 18 95 Nasal Cannula 2.0 28 05/02/19 03:04 70 18 93 Nasal Cannula 2.0 28 05/02/19 00:31 172/100 05/02/19 00:00 97.2 75 19 162/84 (110) 95 05/02/19 00:00 75 162/84 05/01/19 23:43 78 20 96 Nasal Cannula 2.0 28 05/01/19 23:26 74 18 92 Nasal Cannula 2.0 28 05/01/19 21:00 72 18 98 Nasal Cannula 2.0 05/01/19 21:00 72 18 98 Nasal Cannula 2.0 05/01/19 21:00 Nasal Cannula 2.0 05/01/19 20:08 72 20 97 Nasal Cannula 2.0 05/01/19 19:54 71 18 90 Nasal Cannula 2.0 05/01/19 19:54 90 Nasal Cannula 2.0 05/01/19 19:04 163/95 05/01/19 19:02 75 163/95 (117) 05/01/19 17:36 73 172/87 05/01/19 16:42 172/87 Intake and Output 05/01/19 05/02/19 19:00 07:00 Intake Total 300 ml 450 ml Output Total 500 ml 600 ml Balance -200 ml -150 ml Intake Oral 300 ml 450 ml Output Urine Total 500 ml 600 ml Laboratory Tests Test 05/02/19 10:40 White Blood Count 7.5 K/UL (4.8-10.8) Red Blood Count 3.18 M/UL (4.70-6.10) L Hemoglobin 9.3 G/DL (14.2-18.0) L Hematocrit 28.7 % (42.0-52.0) L Mean Corpuscular Volume 90 FL (80-99) Mean Corpuscular Hemoglobin 29.1 PG (27.0-31.0) Mean Corpuscular Hemoglobin Concent 32.2 G/DL (32.0-36.0) Red Cell Distribution Width 14.1 % (11.6-14.8) Platelet Count 337 K/UL (150-450) Mean Platelet Volume 4.7 FL (6.5-10.1) L Neutrophils (%) (Auto) 71.2 % (45.0-75.0) Lymphocytes (%) (Auto) 13.5 % (20.0-45.0) L Monocytes (%) (Auto) 6.6 % (1.0-10.0) Eosinophils (%) (Auto) 7.4 % (0.0-3.0) H Basophils (%) (Auto) 1.3 % (0.0-2.0) Sodium Level 140 MMOL/L (136-145) Potassium Level 4.0 MMOL/L (3.5-5.1) Chloride Level 105 MMOL/L (98-107) Carbon Dioxide Level 23 MMOL/L (21-32) Anion Gap 12 mmol/L (5-15) Blood Urea Nitrogen 52 mg/dL (7-18) H Creatinine 3.8 MG/DL (0.55-1.30) H Estimat Glomerular Filtration Rate 16.1 mL/min (>60) Glucose Level 183 MG/DL (74-106) H Uric Acid 9.1 MG/DL (2.6-7.2) H Calcium Level 8.1 MG/DL (8.5-10.1) L Phosphorus Level 4.8 MG/DL (2.5-4.9) Magnesium Level 2.2 MG/DL (1.8-2.4) Total Bilirubin 0.3 MG/DL (0.2-1.0) Aspartate Amino Transf (AST/SGOT) 20 U/L (15-37) Alanine Aminotransferase (ALT/SGPT) 24 U/L (12-78) Alkaline Phosphatase 91 U/L (46-116) Pro-B-Type Natriuretic Peptide 91789 pg/mL (0-125) H Total Protein 5.6 G/DL (6.4-8.2) L Albumin 2.0 G/DL (3.4-5.0) L Globulin 3.6 g/dL Albumin/Globulin Ratio 0.6 (1.0-2.7) L Objective HEAD AND NECK: No JVD or carotid bruit. LUNGS: Have decreased breath sounds. CARDIOVASCULAR: Regular S1 and S2 with no gallop or murmur. ABDOMEN: Soft. EXTREMITIES: 2+ pitting edema and scrotal edema. Davy Huitron MD May 02, 2019 16:05
--- NOTE | 2019-05-02 16:25 | NUR ---
NURSE NOTES: 02 SAT ON 3L N/C 95%. 0N RA 92-93%. WILMAN SPAIN MGR INFORMED. WILL CALL DR PACKER.
--- NOTE | 2019-05-02 16:40 | NUR ---
DISCHARGE PLANNED PT WILL DC TO [facility] [address] , [facility], [address] VIA TAXI THAT WILL BE ARRANGED BY NURSE.
--- NOTE | 2019-05-02 16:54 | NUR ---
SOLDER CREAM MAKER NOTES PT PLACED ON ROOM AIR, O2 SAT @ 92%. PT DOES NOT QUALIFY FOR HOME OXYGEN, MADE AWARE. DC PT TO [facility] WITHOUT O2.
[2019-05-02] MEDS ORDERED: FUROSEMIDE40 MG ORAL (17:35)
--- NOTE | 2019-05-02 18:49 | NUR ---
NURSE NOTES: bp 171/90 p 82. 02 sat on 3l n/c 95%.
--- NOTE | 2019-05-02 19:04 | NUR ---
NURSE NOTES: pt all dressed up . for discharge to [facility]. report given to january. waiting for taxi transportation.
--- NOTE | 2019-05-02 19:23 | NUR ---
NURSE NOTES: DISCHARGED PER WHEELCHAIR TO [facility] VIA TAXI VOUCHER IN STABLE CONDITION. DC INSTRUCTIONS AND HOME PRESCRIPTION MEDS GIVEN.
[2019-05-02] MEDS ORDERED: Epogen (for non ESRD use) SUBQ SCH (21:00)
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
== END 2019-05-02 19:10 | DRG 194 ==
LOC: EMR 20:50 → 2E 21:38 → EDBEDREQ 22:25 → 3E 04-27 18:48
PROC: 30233N1 Transfusion of Nonautologous Red Blood Cells into Peripheral Vein, Percutaneous Approach (ICD-10-PCS; principal; 2019-04-28)
DX: I13.0 Hypertensive heart and chronic kidney disease with heart failure and stage 1 through stage 4 chronic kidney disease, or unspecified chronic kidney disease (principal); N17.9 Acute kidney failure, unspecified; E88.09 Other disorders of plasma-protein metabolism, not elsewhere classified; F20.9 Schizophrenia, unspecified; Z79.01 Long term (current) use of anticoagulants; N18.9 Chronic kidney disease, unspecified; I50.33 Acute on chronic diastolic (congestive) heart failure; Z88.0 Allergy status to penicillin; I44.0 Atrioventricular block, first degree; I16.0 Hypertensive urgency; E78.2 Mixed hyperlipidemia; D64.9 Anemia, unspecified
CPT/HCPCS: 36415; 71045; 76770; 80048; 80053; 80061; 80069; 80076; 81001; 81050; 82043; 82378; 82550; 82553; 82575; 82607; 82728; 82746; 82962; 83036; 83540; 83550; 83615; 83735; 83880; 83935; 84100; 84133; 84156; 84300; 84439; 84443; 84484; 84550; 85007; 85025; 85044; 85060; 85610; 85651; 85730; 86140; 86850; 86900; 86901; 86920; 87081; 89050; 93005; 93306; 93970; 94640; 94664; 96374; 96375; 96376; 99285; J7620; J8499